=== PATIENT | male | born 1970 | race Hispanic/Latino ===

== ENCOUNTER 2018-04-09 02:28 | Inpatient (IN) | payer OTHER ==
[~2018-04-09] VITALS: Ht 172.7 cm; Wt 146.1 kg
[2018-04-09] VITALS (20 sets, daily range): BP systolic 95–155; BP diastolic 39–90
[~2018-04-09 02:28] MED LIST: GEMFIBROZIL600 MG PO; LEVEMIR100 UNIT/1 SQ; LISINOPRIL40 MG PO; NOVOLOG MI100 UNITS/ SQ; NOVOLOG100 UNITS/ SQ; PRAVASTATIN SOD40 MG PO
[2018-04-09] MEDS ORDERED: VANCOMYCIN 1GM/NS 250 ML 250 ML IV ONE (02:45)
[2018-04-09] MEDS ORDERED: ACETAMINOPHEN 325 MG TAB PO ONE (02:45)
[2018-04-09] MEDS ORDERED: SODIUM CHLORIDE 0.9% 1000ML 1,000 ML IV ONE ×4 (02:45→04:00)
[2018-04-09] MEDS ORDERED: DOXYCYCLINE 100MG/NS 100ML 100 ML IV ONE (02:45)
[2018-04-09 02:57] LABS: BASOPHILS # (AUTO) 0.1 (0.0-0.1); BASOPHILS % 0.3 % (0.0-1.0); EOSINOPHILS # (AUTO) 0.5 (0.0-0.4); HEMATOCRIT 46.8 % (38.2-49.6); HEMOGLOBIN 16.6 g/dL (14.0-18.0); LYMPHOCYTES # (AUTO) 1.5 (1.0-3.2); LYMPHOCYTES % 6.5 % (18.0-39.1); MEAN CORPUSCULAR HEMOGLOBIN 28.8 pg (28-32); MEAN CORPUSCULAR HGB CONC 35.5 g/dL (31-35); MEAN CORPUSCULAR VOLUME 81.3 fL (81-99); MONOCYTES # (AUTO) 0.7 (0.2-0.8); MONOCYTES % 2.9 % (4.4-11.3); NEUTROPHILS # (AUTO) 20.3 (2.1-6.9); NEUTROPHILS % 87.6 % (38.7-80.0); PLATELET COUNT 303 x10e3/uL (140-360); RED BLOOD COUNT 5.76 x10e6/uL (4.3-5.7); RED CELL DISTRIBUTION WIDTH 13.2 % (11.7-14.4)
[2018-04-09 03:13] LABS: ALANINE AMINOTRANSFERASE 53 IU/L (0-55); ALBUMIN 3.9 g/dL (3.5-5.0); ALKALINE PHOSPHATASE 99 IU/L (40-150); BLOOD UREA NITROGEN 22 mg/dL (7-26); BUN/CREATININE RATIO 17 (6-25); CALCIUM 10.1 mg/dL (8.4-10.2); CARBON DIOXIDE 22 mmol/L (22-29); CHLORIDE 100 mmol/L (98-107); CREATININE, SERUM 1.27 mg/dL (0.72-1.25); EST GLOMERULAR FILTRATION RATE > 60 ML/MIN (60-); GLUCOSE 318 mg/dL (74-118)
[2018-04-09] MEDS ORDERED: TRAMADOL HCL 50 MG TAB PO ONE (03:15)
[2018-04-09 03:16] LABS: SODIUM 136 mmol/L (136-145)
[2018-04-09 03:23] LABS: EOSINOPHILS % (MANUAL) 3 % (0-7); LYMPHOCYTES % (MANUAL) 5 % (19-48); MONOCYTES % (MANUAL) 4 % (3.4-9.0); NEUTROPHILS % (MANUAL) 88 % (40-74); PLATELET MORPHOLOGY COMMENT NORMAL; RBC MORPHOLOGY COMMENT NORMAL
[2018-04-09 03:24] LABS: PLATELET ESTIMATE ADEQUATE
[2018-04-09] MEDS ORDERED: SODIUM CHLORIDE 0.9% 1000ML 1,000 ML ONE (03:33)
--- NOTE | 2018-04-09 03:35 | Diagnostic Imaging Report ---
EXAM: CHEST SINGLE (PORTABLE), AP 1 view INDICATION: Fever COMPARISON: None FINDINGS: LINES/TUBES: None LUNGS: Right middle lobe atelectasis. PLEURA: No effusions or pneumothorax. HEART AND MEDIASTINUM: Normal size and contour. BONES AND SOFT TISSUES: No acute findings. IMPRESSION: Right middle lobe atelectasis. This could represent pneumonia in the appropriate clinical setting. Signed by: Dr. Rina Parada M.D. on 04/09/2018 3:32 AM
[2018-04-09] MEDS ORDERED: IBUPROFEN 600 MG TAB PO STA (03:58)
[2018-04-09] MEDS ORDERED: IBUPROFEN 600 MG TAB ONE (04:02)
--- NOTE | 2018-04-09 04:45 | Diagnostic Imaging Report ---
EXAM: CT CHEST WO INDICATION: Bodyaches, fever COMPARISON: CT of the abdomen and pelvis August 11, 2014 TECHNIQUE: Multidetector CT scanning of the chest was performed. Coronal and sagittal multiplanar reformations were obtained. Routine protocol performed. IV Contrast: None CTDIvol has been reviewed. It is below the limits set by the Radiation Protocol Committee (RPC). FINDINGS: LUNGS AND AIRWAYS: The trachea and major bronchi are unremarkable. No consolidations or edema. There is a 1.1 cm nodule in the posterior aspect of the right lower lobe, stable since at least 2013. PLEURA: No effusions or pneumothorax. HEART, MEDIASTINUM, VESSELS: Normal appearance. UPPER ABDOMEN: Diffuse hepatic steatosis. MUSCULOSKELETAL: No acute findings. IMPRESSION: No evidence of pneumonia. Signed by: Dr. Rina Parada M.D. on 04/09/2018 4:41 AM
[2018-04-09] MEDS ORDERED: NOVOLOG MI100 UNIT/1 (04:55)
[2018-04-09] MEDS ORDERED: METFORMIN HCL500 M1 PO (04:55)
[2018-04-09] MEDS ORDERED: FENOFIBRATE160 MG PO (04:55)
[2018-04-09] MEDS ORDERED: LEVEMIR100 UNIT/1 (04:55)
[2018-04-09] MEDS ORDERED: CRESTOR10 MG PO (05:00)
[2018-04-09] MEDS ORDERED: DEXTROSE 50% SYRINGE 50 ML IV PRN (05:00)
[2018-04-09] MEDS ORDERED: ACETAMINOPHEN 650 MG SUPP PR PRN (05:00)
[2018-04-09] MEDS ORDERED: ONDANSETRON HCL INJ 2 MG/ML VIAL IV PRN (05:00)
[2018-04-09] MEDS: SODIUM CHLORIDE 0.9% 1000ML 1,000 ML IV SCH ×3 (05:39→23:45)
[2018-04-09] MEDS ORDERED: VANCOMYCIN 1GM/NS 250 ML 250 ML IV SCH (05:45)
[2018-04-09 06:00] LABS: CLARITY,URINE CLEAR (CLEAR); COLOR,URINE YELLOW (YELLOW)
[2018-04-09 06:01] LABS: BILIRUBIN,URINE NEGATIVE (NEGATIVE); KETONES,URINE NEGATIVE (NEGATIVE); LEUKOCYTE ESTERASE ,URINE NEGATIVE (NEGATIVE); NITRITE,URINE NEGATIVE (NEGATIVE); PROTEIN,URINE DIPSTICK NEGATIVE (NEGATIVE); URINE UROBILINOGEN 0.2 mg/dL (0.2 - 1)
[2018-04-09 06:02] LABS: RBC,URINE 0-5 /HPF (0-5); WBC,URINE (MAN) 0-5 /HPF (0-5)
[2018-04-09 06:03] LABS: EPITHELIAL CELLS,URINE FEW /LPF
[2018-04-09] MEDS ORDERED: SODIUM CHLORIDE 0.9% 1000ML 1,000 ML IV STA (07:18)
[2018-04-09] MEDS: INSULIN REGULAR, HUMAN 100 UNIT/1 ML 3ML VIAL SQ SCH ×4 (07:30→21:08)
[2018-04-09] MEDS ORDERED: DOXYCYCLINE 100MG/NS 100ML 100 ML IV SCH (15:00)
[2018-04-09] MEDS: DOXYCYCLINE 100MG/NS 100ML 100 ML IV SCH (15:29)
[2018-04-09] MEDS: VANCOMYCIN 1GM/NS 250 ML 250 ML IV SCH (16:20)
[2018-04-09] MEDS: METFORMIN HCL 500 MG TAB CR PO SCH (16:32)
[2018-04-09] MEDS: ENOXAPARIN SOD INJ 40 MG/0.4 ML SYR SC SCH (17:14)
[2018-04-09] MEDS: IBUPROFEN 600 MG TAB PO PRN (19:00)
[2018-04-09] MEDS: SIMVASTATIN 40 MG TAB PO SCH (20:57)
[2018-04-09] MEDS: ACETAMINOPHEN 325 MG TAB PO PRN (20:57)
[2018-04-09] MEDS: INSULIN DETEMIR 100 UNIT/ML PEN SQ SCH (21:08)
[2018-04-10] VITALS (28 sets, daily range): BP systolic 106–164; BP diastolic 70–119
[2018-04-10] MEDS: DOXYCYCLINE 100MG/NS 100ML 100 ML IV SCH ×2 (02:30→14:56)
[2018-04-10] MEDS: VANCOMYCIN 1GM/NS 250 ML 250 ML IV SCH ×2 (03:59→16:11)
[2018-04-10] MEDS: ACETAMINOPHEN 325 MG TAB PO PRN ×2 (04:00→12:25)
[2018-04-10 04:39] LABS: BASOPHILS # (AUTO) 0.1 (0.0-0.1); BASOPHILS % 0.2 % (0.0-1.0); EOSINOPHILS # (AUTO) 0.1 (0.0-0.4); EOSINOPHILS % 0.4 % (0.0-6.0); HEMATOCRIT 40.5 % (38.2-49.6); HEMOGLOBIN 13.9 g/dL (14.0-18.0); LYMPHOCYTES # (AUTO) 1.4 (1.0-3.2); LYMPHOCYTES % 6.4 % (18.0-39.1); MEAN CORPUSCULAR HEMOGLOBIN 28.4 pg (28-32); MEAN CORPUSCULAR HGB CONC 34.3 g/dL (31-35); MEAN CORPUSCULAR VOLUME 82.7 fL (81-99); MONOCYTES # (AUTO) 0.9 (0.2-0.8); NEUTROPHILS # (AUTO) 19.8 (2.1-6.9); NEUTROPHILS % 88.3 % (38.7-80.0); PLATELET COUNT 224 x10e3/uL (140-360); RED CELL DISTRIBUTION WIDTH 13.8 % (11.7-14.4)
[2018-04-10 04:57] LABS: ALANINE AMINOTRANSFERASE 47 IU/L (0-55); ALBUMIN 2.9 g/dL (3.5-5.0); ALBUMIN/GLOBULIN RATIO 0.8 (0.8-2.0); ALKALINE PHOSPHATASE 71 IU/L (40-150); ANION GAP 13.1 mmol/L (8-16); BLOOD UREA NITROGEN 16 mg/dL (7-26); BUN/CREATININE RATIO 15 (6-25); CARBON DIOXIDE 24 mmol/L (22-29); CHLORIDE 103 mmol/L (98-107); CREATININE, SERUM 1.06 mg/dL (0.72-1.25); EST GLOMERULAR FILTRATION RATE > 60 ML/MIN (60-); GLUCOSE 232 mg/dL (74-118); POTASSIUM 4.1 mmol/L (3.5-5.1); SODIUM 136 mmol/L (136-145)
[2018-04-10] MEDS: SODIUM CHLORIDE 0.9% 1000ML 1,000 ML IV SCH ×3 (06:24→20:40)
[2018-04-10] MEDS: INSULIN REGULAR, HUMAN 100 UNIT/1 ML 3ML VIAL SQ SCH ×4 (07:30→21:20)
[2018-04-10] MEDS: PANTOPRAZOLE SOD 40 MG TABEC PO SCH (07:43)
[2018-04-10] MEDS: METFORMIN HCL 500 MG TAB CR PO SCH ×2 (07:49→16:29)
[2018-04-10] MEDS: FENOFIBRATE 145 MG TAB PO SCH (07:49)
[2018-04-10] MEDS: LISINOPRIL 20 MG TAB PO SCH (07:49)
[2018-04-10] MEDS: IBUPROFEN 600 MG TAB PO PRN (16:29)
[2018-04-10] MEDS: ENOXAPARIN SOD INJ 40 MG/0.4 ML SYR SC SCH (17:02)
[2018-04-10] MEDS: CEFEPIME HCL 2 GM VIAL IV SCH (20:41)
[2018-04-10] MEDS: VANCOMYCIN HCL 2 GM in SODIUM CHLORIDE 0.9% 500ML 400 ML IV SCH (20:41)
[2018-04-10] MEDS: SIMVASTATIN 40 MG TAB PO SCH (20:50)
[2018-04-10] MEDS: INSULIN DETEMIR 100 UNIT/ML PEN SQ SCH (21:19)
--- NOTE | 2018-04-10 23:38 | History and Physical ---
No dictation, 3 minutes 56 seconds Job#: [id number]
[2018-04-11 00:35] VITALS: BP 158/98
[2018-04-11] MEDS: IBUPROFEN 600 MG TAB PO PRN (02:54)
[2018-04-11 03:13] VITALS: BP 148/83
[2018-04-11] MEDS: SODIUM CHLORIDE 0.9% 1000ML 1,000 ML IV SCH ×3 (04:50→22:16)
[2018-04-11 05:17] LABS: BASOPHILS % 0.3 % (0.0-1.0); EOSINOPHILS # (AUTO) 0.3 (0.0-0.4); EOSINOPHILS % 2.2 % (0.0-6.0); HEMATOCRIT 36.9 % (38.2-49.6); HEMOGLOBIN 12.6 g/dL (14.0-18.0); LYMPHOCYTES # (AUTO) 1.4 (1.0-3.2); LYMPHOCYTES % 9.3 % (18.0-39.1); MEAN CORPUSCULAR HEMOGLOBIN 28.1 pg (28-32); MEAN CORPUSCULAR HGB CONC 34.1 g/dL (31-35); MEAN CORPUSCULAR VOLUME 82.4 fL (81-99); MONOCYTES % 6.5 % (4.4-11.3); NEUTROPHILS # (AUTO) 12.1 (2.1-6.9); NEUTROPHILS % 81.2 % (38.7-80.0); PLATELET COUNT 228 x10e3/uL (140-360); RED BLOOD COUNT 4.48 x10e6/uL (4.3-5.7)
[2018-04-11 05:48] LABS: ANION GAP 13.7 mmol/L (8-16); BLOOD UREA NITROGEN 14 mg/dL (7-26); BUN/CREATININE RATIO 16 (6-25); CALCIUM 9.1 mg/dL (8.4-10.2); CARBON DIOXIDE 21 mmol/L (22-29); CHLORIDE 105 mmol/L (98-107); EST GLOMERULAR FILTRATION RATE > 60 ML/MIN (60-); GLUCOSE 280 mg/dL (74-118); POTASSIUM 3.7 mmol/L (3.5-5.1); SODIUM 136 mmol/L (136-145)
[2018-04-11 07:30] VITALS: BP 148/83
[2018-04-11] MEDS: INSULIN REGULAR, HUMAN 100 UNIT/1 ML 3ML VIAL SQ SCH ×4 (07:30→22:15)
[2018-04-11] MEDS: PANTOPRAZOLE SOD 40 MG TABEC PO SCH (07:40)
[2018-04-11] MEDS: METFORMIN HCL 500 MG TAB CR PO SCH ×2 (08:00→17:45)
[2018-04-11] MEDS: LISINOPRIL 20 MG TAB PO SCH (09:30)
[2018-04-11] MEDS: FENOFIBRATE 145 MG TAB PO SCH (09:30)
[2018-04-11] MEDS: VANCOMYCIN HCL 2 GM in SODIUM CHLORIDE 0.9% 500ML 400 ML IV SCH ×2 (09:30→21:39)
[2018-04-11] MEDS ORDERED: LACTOBACILLUS ACIDOPHILUS CAPSULE ONE (10:05)
[2018-04-11] MEDS: LACTOBACILLUS ACIDOPHILUS CAPSULE PO SCH ×3 (10:06→21:39)
[2018-04-11] MEDS: CEFEPIME HCL 2 GM VIAL IV SCH ×3 (11:30→22:16)
--- NOTE | 2018-04-11 12:42 | Diagnostic Imaging Report ---
PROCEDURE: A single AP view of the chest. COMPARISON: Chest radiograph 04/09/18. INDICATIONS: STATUS POST PICC LINE PLACEMENT FINDINGS: Lines/tubes: Right sided PICC terminating in the expected location of the upper SVC near the brachiocephalic confluence. Radiopaque density overlying the right lung apex, likely overlying the patient. Lungs: Low lung volumes with patchy right basilar opacity. Pleura: There is no pleural effusion or pneumothorax. Heart and mediastinum: The cardiomediastinal silhouette is unchanged. Bones: No acute bony abnormality. IMPRESSION: Right sided PICC terminating in the expected location of the upper SVC near the brachiocephalic confluence. Patchy right basilar opacity, likely atelectasis. Aspiration or pneumonia could have a similar appearance. Dictated by: KASANDRA DUPONT M.D. on 04/11/2018 at 12:47 Electronically approved by: KASANDRA DUPONT M.D. on 04/11/2018 at 12:47
[2018-04-11 13:22] VITALS: BP 139/81
[2018-04-11] MEDS ORDERED: GADOBENATE DIMEGLUMINE 1 ML IV ONE (14:21)
[2018-04-11 15:15] VITALS: BP 141/80
--- NOTE | 2018-04-11 16:40 | Consultation ---
DATE OF CONSULT: April 10, 2018 REASON FOR CONSULTATION: Cellulitis of the leg, not responding to current choice of antibiotic. 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 The patient had surgery done recently. The patient is being admitted with redness and swelling of his left leg. The patient denies any history of trauma, but he is telling me since September, he had several infections, this is his 4th infection in the leg. The patient is telling me that he had leiomyosarcoma. He had surgery, seems like a muscle flap. Since then, he had several infections. The patient has underlying history of obesity, diabetes mellitus, hypertension, hypercholesterolemia, and infection x4 in the last year as mentioned above. ALLERGIES: NKA. FAMILY HISTORY: There is no smoking, drug abuse, alcohol abuse. FAMILY HISTORY: Hypertension. REVIEW OF SYSTEMS HEENT: There is no headache, visual changes, or hearing changes. GI: There is no nausea. No vomiting. No diarrhea. CARDIAC: There is no arrhythmia. NEURO: No seizure activity. SKIN: There is no rashes. PHYSICAL EXAMINATION GENERAL: He is currently alert and oriented, does not seem to be in acute distress. VITAL SIGNS: Stable, currently afebrile. HEENT: Normocephalic, not appear icteric. NECK: Supple. No JVD. No lymphadenopathy. No thyromegaly. CHEST: Clear bilateral. COR: S1 and S2. No murmur. ABDOMEN: Soft. EXTREMITIES: The left leg, there is erythema. There is edema involving the whole leg. There is induration. There is no bullous formation. No black discoloration. LABORATORY DATA: White count 23.1, hemoglobin 16.6. His sodium 136, potassium 3.7, creatinine of 0.94, and glucose of 229. IMPRESSION AND PLAN 1. Cellulitis of the leg in a patient who is morbidly obese, history of surgery before, diabetes mellitus. We will put him on vancomycin 2 g IV piggyback q.12 hours, obtain trough with the 4th dose. Discussed with the nurse. 2. We will also put him on cefepime 2 g q.12 hours. 3. Await blood cultures and urine cultures. Recheck CBC, recheck chem panel. P.r.n. diabetic control. 4. If there is no improvement in the leg, we will probably need to do a MRI of the leg to rule out an abscess especially with patient having surgery. He may need to be IV antibiotics. He will need a PICC line and 2 to 3 weeks of IV antibiotic depending on clinical course because of his weight and underlying medical problems. 1. I am also concerned about lymphedema. Discussed with the patient. He will benefit from mid thigh-high elastic stocking. Job#: [id number] JOSTIN
--- NOTE | 2018-04-11 16:41 | Diagnostic Imaging Report ---
TECHNIQUE: Magnetic resonance imaging of the LEFT tibia and fibula was performed without and with injected contrast. 20 mL of MultiHance. HISTORY: Pain, cellulitis COMPARISON: None available. FINDINGS: Edema and skin thickening throughout the lower extremity. No fluid collections. No abnormal septal enhancement. No signal void within the soft tissues to suggest gas. Bone marrow signal is normal. No edema or finding of osteomyelitis. IMPRESSION: Cellulitis of the left lower extremity. No abscess or osteomyelitis. Signed by: Dr. Slade Sheikh M.D. on 04/11/2018 4:38 PM
[2018-04-11] MEDS: ENOXAPARIN SOD INJ 40 MG/0.4 ML SYR SC SCH (17:45)
[2018-04-11 20:56] VITALS: BP 161/72
[2018-04-11] MEDS: SIMVASTATIN 40 MG TAB PO SCH (21:39)
[2018-04-11] MEDS: ACETAMINOPHEN 325 MG TAB PO PRN (21:39)
[2018-04-11] MEDS: INSULIN DETEMIR 100 UNIT/ML PEN SQ SCH (22:16)
[2018-04-12] VITALS (9 sets, daily range): BP systolic 137–169; BP diastolic 68–94
[2018-04-12] MEDS: SODIUM CHLORIDE 0.9% 1000ML 1,000 ML IV SCH (05:20)
[2018-04-12 05:49] LABS: BASOPHILS % 0.2 % (0.0-1.0); EOSINOPHILS # (AUTO) 0.3 (0.0-0.4); EOSINOPHILS % 1.8 % (0.0-6.0); HEMATOCRIT 36.3 % (38.2-49.6); HEMOGLOBIN 12.3 g/dL (14.0-18.0); LYMPHOCYTES # (AUTO) 1.6 (1.0-3.2); LYMPHOCYTES % 11.1 % (18.0-39.1); MEAN CORPUSCULAR HGB CONC 33.9 g/dL (31-35); MEAN CORPUSCULAR VOLUME 82.5 fL (81-99); MONOCYTES % 6.8 % (4.4-11.3); NEUTROPHILS # (AUTO) 11.6 (2.1-6.9); NEUTROPHILS % 79.3 % (38.7-80.0); PLATELET COUNT 261 x10e3/uL (140-360); RED CELL DISTRIBUTION WIDTH 13.7 % (11.7-14.4)
[2018-04-12 05:57] LABS: ANION GAP 13.5 mmol/L (8-16); BLOOD UREA NITROGEN 13 mg/dL (7-26); BUN/CREATININE RATIO 16 (6-25); CARBON DIOXIDE 22 mmol/L (22-29); CHLORIDE 105 mmol/L (98-107); CREATININE, SERUM 0.79 mg/dL (0.72-1.25); EST GLOMERULAR FILTRATION RATE > 60 ML/MIN (60-); GLUCOSE 219 mg/dL (74-118); POTASSIUM 3.5 mmol/L (3.5-5.1); SODIUM 137 mmol/L (136-145)
[2018-04-12] MEDS: CEFEPIME HCL 2 GM VIAL IV SCH ×3 (06:07→22:10)
[2018-04-12] MEDS: ACETAMINOPHEN 325 MG TAB PO PRN (06:07)
[2018-04-12] MEDS: LACTOBACILLUS ACIDOPHILUS CAPSULE PO SCH ×3 (08:59→21:30)
[2018-04-12] MEDS: FENOFIBRATE 145 MG TAB PO SCH (08:59)
[2018-04-12] MEDS: LISINOPRIL 20 MG TAB PO SCH (08:59)
[2018-04-12] MEDS: PANTOPRAZOLE SOD 40 MG TABEC PO SCH (08:59)
[2018-04-12] MEDS: METFORMIN HCL 500 MG TAB CR PO SCH ×2 (08:59→18:31)
[2018-04-12] MEDS: INSULIN REGULAR, HUMAN 100 UNIT/1 ML 3ML VIAL SQ SCH ×4 (09:00→21:20)
[2018-04-12] MEDS: VANCOMYCIN HCL 2 GM in SODIUM CHLORIDE 0.9% 500ML 400 ML IV SCH (10:00)
[2018-04-12] MEDS ORDERED: VANCOMYCIN HCL 1.5 GM in SODIUM CHLORIDE 0.9% 250ML 300 ML IV SCH (14:00)
[2018-04-12] MEDS: VANCOMYCIN HCL 1.5 GM in SODIUM CHLORIDE 0.9% 250ML 300 ML IV SCH (18:31)
[2018-04-12] MEDS: ENOXAPARIN SOD INJ 40 MG/0.4 ML SYR SC SCH (18:31)
[2018-04-12] MEDS: INSULIN DETEMIR 100 UNIT/ML PEN SQ SCH (21:20)
[2018-04-12] MEDS: SIMVASTATIN 40 MG TAB PO SCH (21:30)
[2018-04-13] VITALS (8 sets, daily range): BP systolic 151–175; BP diastolic 69–90
[2018-04-13] MEDS: VANCOMYCIN HCL 1.5 GM in SODIUM CHLORIDE 0.9% 250ML 300 ML IV SCH ×2 (01:40→10:40)
[2018-04-13 05:02] LABS: BASOPHILS # (AUTO) 0.1 (0.0-0.1); BASOPHILS % 0.5 % (0.0-1.0); EOSINOPHILS # (AUTO) 0.2 (0.0-0.4); EOSINOPHILS % 1.4 % (0.0-6.0); HEMATOCRIT 34.4 % (38.2-49.6); HEMOGLOBIN 11.8 g/dL (14.0-18.0); LYMPHOCYTES # (AUTO) 1.8 (1.0-3.2); LYMPHOCYTES % 12.1 % (18.0-39.1); MEAN CORPUSCULAR HEMOGLOBIN 27.8 pg (28-32); MEAN CORPUSCULAR HGB CONC 34.3 g/dL (31-35); MEAN CORPUSCULAR VOLUME 81.1 fL (81-99); MONOCYTES # (AUTO) 1.3 (0.2-0.8); MONOCYTES % 8.7 % (4.4-11.3); NEUTROPHILS % 76.2 % (38.7-80.0); PLATELET COUNT 267 x10e3/uL (140-360); RED BLOOD COUNT 4.24 x10e6/uL (4.3-5.7); RED CELL DISTRIBUTION WIDTH 13.6 % (11.7-14.4)
[2018-04-13 05:25] LABS: ANION GAP 13.3 mmol/L (8-16); BLOOD UREA NITROGEN 12 mg/dL (7-26); BUN/CREATININE RATIO 15 (6-25); CALCIUM 9.2 mg/dL (8.4-10.2); CARBON DIOXIDE 23 mmol/L (22-29); CHLORIDE 103 mmol/L (98-107); CREATININE, SERUM 0.78 mg/dL (0.72-1.25); EST GLOMERULAR FILTRATION RATE > 60 ML/MIN (60-); GLUCOSE 197 mg/dL (74-118); POTASSIUM 3.3 mmol/L (3.5-5.1); SODIUM 136 mmol/L (136-145)
[2018-04-13] MEDS: CEFEPIME HCL 2 GM VIAL IV SCH ×2 (05:33→14:25)
[2018-04-13] MEDS: ACETAMINOPHEN 325 MG TAB PO PRN (05:38)
[2018-04-13] MEDS: FENOFIBRATE 145 MG TAB PO SCH (08:37)
[2018-04-13] MEDS: METFORMIN HCL 500 MG TAB CR PO SCH ×2 (08:37→17:31)
[2018-04-13] MEDS: LISINOPRIL 20 MG TAB PO SCH (08:37)
[2018-04-13] MEDS: LACTOBACILLUS ACIDOPHILUS CAPSULE PO SCH ×2 (08:37→14:38)
[2018-04-13] MEDS: PANTOPRAZOLE SOD 40 MG TABEC PO SCH (08:37)
[2018-04-13] MEDS: INSULIN REGULAR, HUMAN 100 UNIT/1 ML 3ML VIAL SQ SCH ×3 (08:41→17:23)
[2018-04-13] MEDS ORDERED: POTASSIUM CHLORIDE 20 MEQ TAB CR PO ONE (12:10)
--- NOTE | 2018-04-13 13:41 | Discharge Summary ---
PRIMARY CARE PHYSICIAN: Dr. Cardoza. Discharge the patient home. DISCHARGE DIAGNOSES 1. Left lower extremity cellulitis. 2. Sepsis present on admission. 3. Hypertension. 4. Type 2 diabetes mellitus, uncontrolled, with hemoglobin A1c of 8.5. 5. Obesity. 6. History of chronic left lower extremity edema. HOSPITAL COURSE: Mr. Shaun Campos is a 48-year-old male. He has past medical history of hypertension, type 2 diabetes mellitus, history of some surgery for removal of a tumor in the left leg several years ago. Since then, he has mild swelling in his left lower extremity, which is his baseline, but he started having fevers, worsening redness, swelling in his left lower extremity. Hence, he presented to the emergency room at [facility] for evaluation. He was found to have a white count of 23,000 and a fever of 103 and tachycardia. He had severe sepsis that was present on admission. He also had lactic acidosis. He was admitted to ICU. He was started on IV fluids and IV antibiotics. Infectious disease, Dr. Willoughby, also was consulted. Currently he is on vancomycin and cefepime. His leukocytosis is down to 14,000. He has been afebrile for almost 48 hours now and ID has recommended PICC line placement and IV vancomycin as outpatient. We are waiting on medical case manager to arrange IV antibiotics. Once that is arranged, he will be discharged home. He needs serial monitoring of his creatinine while he is on vancomycin, and ID followup early next week to repeat his blood work, and he needs to follow up with his PCP in 1 week as well. I have seen and examined the patient on the day of this discharge. CONDITION AT TIME OF DISCHARGE: Stable. MEDICATIONS: Per NOV. ACTIVITY: As tolerated. DIET: ADA low-sodium diet. FOLLOWUP: The patient was advised to follow up with his primary care physician and infectious disease in 1 week. TIME SPENT FOR DISCHARGE PROCESS: 35 minutes. LETICIA MEDINA MD Job#: [id number] TA cc:DR. CARDOZA
[2018-04-13] MEDS ORDERED: ALTEPLASE RECOMBINANT 2 MG/2 ML VIAL IV ONE (17:15)
[2018-04-13] MEDS: ENOXAPARIN SOD INJ 40 MG/0.4 ML SYR SC SCH (17:31)
== END 2018-04-13 18:41 | disposition home or self-care (01) | DRG 872 ==
LOC: ER 02:28 → ERHOLD 04:58 → ICU 13:49 → MED/SURG3 04-11 16:06
PROVIDERS: ADMIT Internal Medicine; ATTEND Internal Medicine
PROC: 02HV33Z Insertion of Infusion Device into Superior Vena Cava, Percutaneous Approach (ICD-10-PCS; principal; 2018-04-11)
DX: A41.9 Sepsis, unspecified organism (principal); L03.116 Cellulitis of left lower limb; Z68.42 Body mass index [BMI] 45.0-49.9, adult; E87.2 Acidosis; E11.8 Type 2 diabetes mellitus with unspecified complications; E66.01 Morbid (severe) obesity due to excess calories; R65.20 Severe sepsis without septic shock; I10 Essential (primary) hypertension; E78.5 Hyperlipidemia, unspecified
CPT/HCPCS: 36415; 36569; 71045; 71250; 80048; 80053; 80202; 81001; 82948; 83036; 83605; 85025; 87040; 93005; 93971; 96361; 96372; 99284; J0692; J1650; J2997; J3370; J7030; J7040; J7050

== ENCOUNTER 2019-01-23 04:47 | Inpatient (IN) | payer OTHER ==
[2019-01-23] VITALS: BP 133/62
[~2019-01-23] VITALS: Ht 172.7 cm; Wt 137.4 kg
[~2019-01-23 04:47] MED LIST changes: +CRESTOR10 MG PO; +FENOFIBRATE160 MG PO; +LEVEMIR100 UNIT/1; +METFORMIN HCL500 M1 PO; +NOVOLOG MI100 UNIT/1
[2019-01-23] MEDS ORDERED: IBUPROFEN 600 MG TAB PO STA (04:54)
[2019-01-23] MEDS ORDERED: VANCOMYCIN 1GM/NS 250 ML 250 ML IV SCH (05:00)
[2019-01-23] MEDS ORDERED: SODIUM CHLORIDE 0.9% 1000ML 1,000 ML IV ONE ×3 (05:00→06:00)
[2019-01-23] MEDS ORDERED: VASCEPA PO (05:14)
[2019-01-23] MEDS ORDERED: TRESIBA (05:16)
[2019-01-23 05:35] LABS: BASOPHILS # (AUTO) 0.1 (0.0-0.1); BASOPHILS % 0.2 % (0.0-1.0); EOSINOPHILS # (AUTO) 0.5 (0.0-0.4); EOSINOPHILS % 2.1 % (0.0-6.0); HEMOGLOBIN 16.1 g/dL (14.0-18.0); LYMPHOCYTES # (AUTO) 1.2 (1.0-3.2); LYMPHOCYTES % 4.6 % (18.0-39.1); MEAN CORPUSCULAR HEMOGLOBIN 28.9 pg (28-32); MEAN CORPUSCULAR VOLUME 82.4 fL (81-99); MONOCYTES # (AUTO) 1.3 (0.2-0.8); MONOCYTES % 5.1 % (4.4-11.3); NEUTROPHILS # (AUTO) 22.8 (2.1-6.9); NEUTROPHILS % 87.3 % (38.7-80.0); PLATELET COUNT 305 x10e3/uL (140-360); RED BLOOD COUNT 5.58 x10e6/uL (4.3-5.7); RED CELL DISTRIBUTION WIDTH 13.3 % (11.7-14.4)
[2019-01-23] MEDS: CEFEPIME 2 GM/NS 0.9% 100 ML 100 ML IV SCH ×2 (05:55→17:28)
[2019-01-23 05:59] LABS: ALANINE AMINOTRANSFERASE 49 IU/L (0-55); ALBUMIN 3.9 g/dL (3.5-5.0); ALBUMIN/GLOBULIN RATIO 1.1 (0.8-2.0); ALKALINE PHOSPHATASE 76 IU/L (40-150); ANION GAP 14.2 mmol/L (8-16); BLOOD UREA NITROGEN 26 mg/dL (7-26); BUN/CREATININE RATIO 25 (6-25); CALCIUM 10.2 mg/dL (8.4-10.2); CARBON DIOXIDE 22 mmol/L (22-29); CHLORIDE 105 mmol/L (98-107); CREATININE, SERUM 1.04 mg/dL (0.72-1.25); EST GLOMERULAR FILTRATION RATE > 60 ML/MIN (60-); GLUCOSE 195 mg/dL (74-118); POTASSIUM 4.2 mmol/L (3.5-5.1); SODIUM 137 mmol/L (136-145)
[2019-01-23] MEDS ORDERED: ONDANSETRON HCL INJ 2MG/ML 2ML 2 MG/ML VIAL IV PRN (06:15)
[2019-01-23] MEDS ORDERED: DEXTROSE 50% SYRINGE 50 ML IV PRN (06:15)
[2019-01-23] MEDS ORDERED: MORPHINE SULFATE INJ 4 MG/ML INJ 1ML IV PRN (06:45)
[2019-01-23] MEDS: SODIUM CHLORIDE 0.9% 1000ML 1,000 ML IV SCH ×2 (07:54→16:22)
[2019-01-23] MEDS: INSULIN REGULAR, HUMAN 100 UNIT/1 ML 3ML VIAL SQ SCH ×2 (08:18→11:30)
[2019-01-23] MEDS: LISINOPRIL 20 MG TAB PO SCH (08:19)
[2019-01-23] MEDS: VASCEPA PO SCH ×2 (08:19→17:00)
[2019-01-23] MEDS: FENOFIBRATE 145 MG TAB PO SCH (08:19)
[2019-01-23 09:30] VITALS: BP 107/89
--- NOTE | 2019-01-23 09:30 | NUR ---
Patient arrived from ER via wheelchair with a diagnosis of left lower leg cellulitis, Fever, and Leukocytosis. He is awake, alert, able to make needs known and ambulatory. POC discussed. Vital signs taken and stable at this time. LLE is with redness, warmth to touch and edematous. Per patient swelling is intermittent. Patient instructed to call for assistance as needed and verbalized understanding. Bed in lowest position, locked and call ham within reach.
[2019-01-23 09:45] VITALS: BP 107/89
--- NOTE | 2019-01-23 11:00 | NUR ---
Report given to RN.
[2019-01-23 11:40] VITALS: BP 108/53
[2019-01-23] MEDS: LACTOBACILLUS ACIDOPHILUS CAPSULE PO SCH (16:23)
[2019-01-23] MEDS: INSULIN LISPRO 100 UNIT/1 ML 3ML VIAL SQ SCH ×2 (16:23→21:21)
[2019-01-23 16:27] VITALS: BP 122/61
[2019-01-23] MEDS: ACETAMINOPHEN 325 MG TAB PO PRN ×2 (16:29→20:25)
[2019-01-23] MEDS ORDERED: ENOXAPARIN SOD INJ 40 MG/0.4 ML SYR SC SCH (17:00)
[2019-01-23] MEDS: VANCOMYCIN HCL 2 GM in SODIUM CHLORIDE 0.9% 500ML 500 ML IV SCH (18:43)
[2019-01-23 19:56] VITALS: BP 116/67
[2019-01-23] MEDS: SIMVASTATIN 40 MG TAB PO SCH (21:20)
[2019-01-23] MEDS: INSULIN GLARGINE 100 UNITS/ML VIAL SQ SCH (21:24)
--- NOTE | 2019-01-23 22:04 | Consultation ---
DATE OF CONSULTATION: REASON FOR CONSULTATION: Cellulitis of the leg. Thank you so much for allowing me to see this patient. This is a very pleasant 48-year-old Turkish male, known to me from previous admission back in May when he had the similar problem. HISTORY OF PRESENT ILLNESS: This patient is a very pleasant 48-year-old male with history of diabetes mellitus and history of obesity, who is a industrial relations officer. Back on April 10, he was here with cellulitis of his leg. The patient had leiomyosarcoma of his leg 3 years ago, underwent surgery with resection right above the knee and since then he had 4 infections, the last time back in March after care of him and he was treated with IV antibiotic for a couple of weeks. 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 The patient was treated with vancomycin at that time and with slow improvement and discharged home. He was doing well since then until now. He was instructed to wear an elastic stocking, but he is really not that compliant. He went to see his [place] and told him that something else could be done to help prevent him having infection except wearing the stocking. The patient is coming with redness and pain in his leg. He is also having fever and chills and not feeling well. The patient comes in to the hospital and was admitted. I am asked to see him. PAST MEDICAL HISTORY: Significant for obesity, hypertension, leiomyosarcoma 3 years ago, so far no evidence of recurrence. PAST SURGICAL HISTORY: Resection of leiomyosarcoma. ALLERGIES: PENICILLIN, BUT HE DOES WELL WITH CEPHALOSPORIN. SOCIAL HISTORY: There is no smoking, drug abuse, or alcohol abuse. He is a industrial relations officer. . HOME MEDICATIONS: He is currently on lisinopril, TriCor, insulin, Lovenox, and Zocor. LABORATORY DATA: White count on admission 26, hemoglobin 16.1, hematocrit 46. Sodium 137, potassium 4.1, creatinine 1.04. Lactic acid 25 with liver enzyme within normal limits and his glucose 195. REVIEW OF SYSTEMS: HEENT: There is no headache, visual changes, or hearing changes. GI: There is some nausea. No vomiting. No diarrhea. CARDIAC: There is no arrhythmia. NEURO: There is no seizure activity or focal weakness. SKIN: There is no other rash. JOINT: There is no erythema or edema. All other symptoms within normal limits. PHYSICAL EXAMINATION: GENERAL: He is currently alert, oriented, does not seem to be in acute distress. VITAL SIGNS: Stable, currently afebrile. HEENT: Normocephalic, does not appear icteric. NECK: Supple. No JVD. No lymphadenopathy. No thyromegaly. CHEST: Clear bilateral. HEART: S1 and S2. No S3, S4, or murmur. ABDOMEN: Soft. Bowel sounds present. No tenderness. Obese. EXTREMITIES: Left lower extremity, there is erythema and there is edema. The erythema and edema involving the whole leg from the toes all the way to the knee. His pulses are strong otherwise. IMPRESSION: 1. Sepsis on admission secondary to cellulitis of the leg. 2. Cellulitis of the left leg. His comorbidity factors obesity, diabetes, and history of surgery of leiomyosarcoma with compromised venous return and lymphedema probably. 3. Diabetes. 4. Hypertension. 5. Hypercholesteremia. RECOMMENDATION: Agree with blood cultures. Agree with vancomycin and cefepime. We will await blood cultures. We will dose the vancomycin according to his weight. We will follow the trough. He would need a PICC line. Recheck CBC. Recheck Chem panel. We will follow with you. Thank you for asking me to see this patient. MD MARCELLA Burks/JUANITO /[id number]
--- NOTE | 2019-01-23 22:26 | NUR ---
Transfer patient to Med-surg ([id number]) by wheelchair with stable condition. Addendum: 01/23/19 at 2227 by Dary Willingham RN wrong charting
--- NOTE | 2019-01-23 22:27 | NUR ---
Report given to MAI Patel. Patient transfer to Med-surg ([id number]) by wheelchair with stable condition.
[2019-01-24] VITALS (9 sets, daily range): BP systolic 116–148; BP diastolic 67–81
[2019-01-24] MEDS: CEFEPIME 2 GM/NS 0.9% 100 ML 100 ML IV SCH ×2 (04:09→17:59)
[2019-01-24] MEDS: SODIUM CHLORIDE 0.9% 1000ML 1,000 ML IV SCH (04:53)
[2019-01-24] MEDS: VANCOMYCIN HCL 2 GM in SODIUM CHLORIDE 0.9% 500ML 500 ML IV SCH ×2 (06:17→18:50)
[2019-01-24 06:33] LABS: BASOPHILS % 0.2 % (0.0-1.0); EOSINOPHILS # (AUTO) 0.1 (0.0-0.4); EOSINOPHILS % 0.3 % (0.0-6.0); HEMOGLOBIN 13.6 g/dL (14.0-18.0); LYMPHOCYTES # (AUTO) 1.5 (1.0-3.2); LYMPHOCYTES % 7.4 % (18.0-39.1); MEAN CORPUSCULAR HEMOGLOBIN 28.2 pg (28-32); MEAN CORPUSCULAR HGB CONC 33.2 g/dL (31-35); MEAN CORPUSCULAR VOLUME 84.9 fL (81-99); MONOCYTES # (AUTO) 0.9 (0.2-0.8); MONOCYTES % 4.6 % (4.4-11.3); NEUTROPHILS # (AUTO) 17.2 (2.1-6.9); PLATELET COUNT 249 x10e3/uL (140-360); RED BLOOD COUNT 4.83 x10e6/uL (4.3-5.7); RED CELL DISTRIBUTION WIDTH 13.7 % (11.7-14.4)
[2019-01-24 06:41] LABS: ALANINE AMINOTRANSFERASE 37 IU/L (0-55); ALBUMIN 3.1 g/dL (3.5-5.0); ALBUMIN/GLOBULIN RATIO 0.9 (0.8-2.0); ALKALINE PHOSPHATASE 68 IU/L (40-150); ANION GAP 11.8 mmol/L (8-16); BLOOD UREA NITROGEN 15 mg/dL (7-26); BUN/CREATININE RATIO 17 (6-25); CALCIUM 9.5 mg/dL (8.4-10.2); CARBON DIOXIDE 20 mmol/L (22-29); CHLORIDE 106 mmol/L (98-107); CREATININE, SERUM 0.86 mg/dL (0.72-1.25); EST GLOMERULAR FILTRATION RATE > 60 ML/MIN (60-); GLUCOSE 165 mg/dL (74-118); POTASSIUM 3.8 mmol/L (3.5-5.1); SODIUM 134 mmol/L (136-145)
--- NOTE | 2019-01-24 07:06 | NUR ---
RECEIVED PATIENT RESTING IN BED. NO ACUTE DISTRESS NOTED. DENIES PAIN OR DISCOMFORT. CALL LIGHT WITHIN REACH. BED IN THE LOWEST POSITION.
[2019-01-24] MEDS: ACETAMINOPHEN 325 MG TAB PO PRN ×2 (07:16→21:08)
[2019-01-24] MEDS: INSULIN LISPRO 100 UNIT/1 ML 3ML VIAL SQ SCH ×4 (07:30→21:07)
[2019-01-24] MEDS: VASCEPA PO SCH ×2 (08:08→17:00)
[2019-01-24] MEDS: LISINOPRIL 20 MG TAB PO SCH (08:50)
[2019-01-24] MEDS: FENOFIBRATE 145 MG TAB PO SCH (08:50)
[2019-01-24] MEDS: LACTOBACILLUS ACIDOPHILUS CAPSULE PO SCH ×2 (08:50→17:59)
--- NOTE | 2019-01-24 10:34 | NUR ---
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
--- NOTE | 2019-01-24 15:40 | NUR ---
Visit made by the Spiritual Care Department Pastoral Visitor, Anne-Marie Elena. PV provided pastoral presence, hospitality, and supportive listening. Pastoral Visitor informed pt/family of the scope of [employer] and availability. ALMITA BLANKENSHIP Financial Analysis Advisor Spiritual Care Department O: [phone] Pager: [phone] ([phone] number calling from)
[2019-01-24] MEDS ORDERED: ONDANSETRON HCL 4 MG ORAL DISINTEGRATING TAB PO PRN (16:45)
--- NOTE | 2019-01-24 19:26 | NUR ---
REPORT GIVEN TO ONCOMING NURSE, WALKING ROUNDS DONE. PATIENT IS RESTING IN BED. NO ACUTE DISTRESS NOTED. CALL LIGHT WITHIN REACH. BED IN THE LOWEST POSITION.
--- NOTE | 2019-01-24 19:34 | Diagnostic Imaging Report ---
A single frontal view of the chest. HISTORY: PICC LINE COMPARISON: Chest radiograph April 09, 2018. DISCUSSION: Portable technique, limits sensitivity of the exam. Soft tissue attenuation partially limits sensitivity of the exam. Tubes/Lines: Interval placement of a right upper extremity PICC line, the tip projects in the region of the distal superior vena cava. Lungs and pleura: Low lung volumes result in bibasilar vascular crowding, accentuation of the pulmonary interstitial markings, central pulmonary vasculature, and the cardiac silhouette. Allowing for these limitations, the findings are as follows: No evidence of a consolidative pneumonia or pulmonary alveolar edema. No definite pleural effusion or pneumothorax is identified. Heart and mediastinum: The cardiomediastinal silhouette appears unremarkable. Bones and soft tissues: Appear unremarkable, given this limited exam. IMPRESSION: Status post placement of a right upper extremity PICC line. Signed by: Dr. Mj Lopez D.O., M.M.M. on 01/24/2019 7:31 PM
--- NOTE | 2019-01-24 19:45 | NUR ---
PT IS RESTING IN BED. NO RESPIRATORY DISTRESS NOTED. BED IN THE LOWEST POSITION, LOCKED, AND CALL LIGHT WITHIN REACH. WILL CONTINUE TO MONITOR.
[2019-01-24] MEDS: SIMVASTATIN 40 MG TAB PO SCH (21:06)
[2019-01-24] MEDS: INSULIN GLARGINE 100 UNITS/ML VIAL SQ SCH (21:07)
[2019-01-25] VITALS (8 sets, daily range): BP systolic 122–168; BP diastolic 60–94
[2019-01-25] MEDS: CEFEPIME 2 GM/NS 0.9% 100 ML 100 ML IV SCH ×2 (04:10→16:13)
[2019-01-25] MEDS: VANCOMYCIN HCL 2 GM in SODIUM CHLORIDE 0.9% 500ML 500 ML IV SCH ×2 (05:12→17:19)
[2019-01-25 06:56] LABS: BASOPHILS % 0.2 % (0.0-1.0); EOSINOPHILS # (AUTO) 0.4 (0.0-0.4); EOSINOPHILS % 2.4 % (0.0-6.0); HEMATOCRIT 39.8 % (38.2-49.6); HEMOGLOBIN 13.7 g/dL (14.0-18.0); LYMPHOCYTES # (AUTO) 1.3 (1.0-3.2); LYMPHOCYTES % 7.9 % (18.0-39.1); MEAN CORPUSCULAR HEMOGLOBIN 28.4 pg (28-32); MEAN CORPUSCULAR HGB CONC 34.4 g/dL (31-35); MEAN CORPUSCULAR VOLUME 82.4 fL (81-99); MONOCYTES # (AUTO) 1.1 (0.2-0.8); MONOCYTES % 6.6 % (4.4-11.3); NEUTROPHILS # (AUTO) 13.3 (2.1-6.9); NEUTROPHILS % 82.3 % (38.7-80.0); PLATELET COUNT 242 x10e3/uL (140-360); RED BLOOD COUNT 4.83 x10e6/uL (4.3-5.7); RED CELL DISTRIBUTION WIDTH 13.7 % (11.7-14.4)
[2019-01-25] MEDS: ACETAMINOPHEN 325 MG TAB PO PRN (07:53)
[2019-01-25] MEDS: VASCEPA PO SCH ×2 (07:53→16:13)
[2019-01-25] MEDS: INSULIN LISPRO 100 UNIT/1 ML 3ML VIAL SQ SCH ×4 (07:54→21:22)
[2019-01-25] MEDS: LACTOBACILLUS ACIDOPHILUS CAPSULE PO SCH ×2 (07:54→16:13)
[2019-01-25] MEDS: FENOFIBRATE 145 MG TAB PO SCH (07:54)
[2019-01-25] MEDS: LISINOPRIL 20 MG TAB PO SCH (07:54)
--- NOTE | 2019-01-25 14:09 | NUR ---
RECEIVED PT AAOX3 SITTING IN RECLINER. NO S/S OF DISTRESS NOTED. NO COMPLAINTS AT THIS TIME. INSTRUCTED TO CALL FOR ASSISTANCE. PT VERBALIZED UNDERSTANDING. WILL CONTINUE TO MONITOR.
--- NOTE | 2019-01-25 19:10 | NUR ---
Completed bedside rounds with morning nurse. Pt alert and orient to name. Sitting up on couch watching TV. Denies pain at this time. Call ham within reach. Will continue to monitor.
[2019-01-25] MEDS ORDERED: INSULIN GLARGINE 100 UNITS/ML VIAL SQ SCH (21:00)
[2019-01-25] MEDS: SIMVASTATIN 40 MG TAB PO SCH (21:21)
[2019-01-26] VITALS (7 sets, daily range): BP systolic 133–166; BP diastolic 70–91
[2019-01-26] MEDS: CEFEPIME 2 GM/NS 0.9% 100 ML 100 ML IV SCH ×2 (05:00→17:17)
[2019-01-26] MEDS: VANCOMYCIN HCL 2 GM in SODIUM CHLORIDE 0.9% 500ML 500 ML IV SCH ×2 (06:00→17:17)
[2019-01-26 06:36] LABS: BASOPHILS # (AUTO) 0.1 (0.0-0.1); BASOPHILS % 0.4 % (0.0-1.0); EOSINOPHILS # (AUTO) 0.5 (0.0-0.4); EOSINOPHILS % 4.1 % (0.0-6.0); HEMATOCRIT 38.5 % (38.2-49.6); LYMPHOCYTES # (AUTO) 1.8 (1.0-3.2); LYMPHOCYTES % 14.8 % (18.0-39.1); MEAN CORPUSCULAR HEMOGLOBIN 28.1 pg (28-32); MEAN CORPUSCULAR HGB CONC 33.8 g/dL (31-35); MEAN CORPUSCULAR VOLUME 83.2 fL (81-99); NEUTROPHILS # (AUTO) 8.6 (2.1-6.9); NEUTROPHILS % 72.2 % (38.7-80.0); PLATELET COUNT 268 x10e3/uL (140-360); RED BLOOD COUNT 4.63 x10e6/uL (4.3-5.7); RED CELL DISTRIBUTION WIDTH 13.5 % (11.7-14.4)
--- NOTE | 2019-01-26 06:57 | NUR ---
Pt sitting on couch watching TV. Denies pain at this time. No distress noted.
--- NOTE | 2019-01-26 07:09 | NUR ---
pt alert resp even and unlabored at this time no distress noted pot able to make needs known no c/o pain when asked, call light in reach.
[2019-01-26] MEDS: LACTOBACILLUS ACIDOPHILUS CAPSULE PO SCH ×2 (08:22→17:17)
[2019-01-26] MEDS: LISINOPRIL 20 MG TAB PO SCH (08:22)
[2019-01-26] MEDS: FENOFIBRATE 145 MG TAB PO SCH (08:22)
[2019-01-26] MEDS: VASCEPA PO SCH ×2 (08:23→17:00)
[2019-01-26] MEDS: ACETAMINOPHEN 325 MG TAB PO PRN (08:38)
[2019-01-26] MEDS: INSULIN LISPRO 100 UNIT/1 ML 3ML VIAL SQ SCH ×3 (08:41→17:19)
--- NOTE | 2019-01-26 14:36 | NUR ---
ORDERS FOR HOME IV ABX VANCOMYCIN 2 GM IV Q 12 HRS X 10 MORE DAYS CBC AND CHEM PANEL Q WEDNESDAY AND FAX RESULTS TO DR CONROY CHOICE LETTER SIGNED FOR [facility] AND [facility] PH [phone]; FAX: [phone] COPY OF CHOICE LETTER GIVEN TO PT SPOKE WITH ZACK BENJAMIN WITH [facility] AND CONFIRMED THAT THEY ARE IN NETWORK WITH PT'S INSURANCE FAXED ORDERS; CONFIRMATION REC'D PLAN DC HOME TODAY AFTER 4PM VANCOMYCIN COPY OF NAME AND NUMBER OF HOME HEALTH GIVEN TO PT
--- NOTE | 2019-01-26 14:41 | NUR ---
HOME IV ANTIBIOTICS FOLLOWS: VANCOMYCIN 2GMS IV Q 12 HRS X 10 MORE DAYS (LAST DAY 02/05) CBC AND CHEM PANEL EVERY WEDNESDAY AND FAX RESULTS TO DR [facility] PH: [phone] FAX: [phone] CONTACT: ZACK BENJAMIN CELL: [phone] [facility] MACHINE OPERATOR: ASA JOSÉ R.N., C.M. [phone]
--- NOTE | 2019-01-26 16:10 | Discharge Summary ---
PRIMARY CARE DOCTOR: Dr. Flavio Cardoza. FINAL DIAGNOSIS: Sepsis present on admission secondary to left leg cellulitis. SECONDARY DIAGNOSES: 1. Morbid obesity. 2. Uncontrolled diabetes. 3. Hypertension. 4. Previous leiomyosarcoma of left flank status post surgery two years ago. CONSULTANTS: Dr. Willoughby, Infectious Disease. PROCEDURES/STUDIES PERFORMED: PICC line placement. HISTORY: Per H and P. HOSPITAL COURSE: The patient was admitted. This is the same presentation as last year. Initially, the patient responded very quick to IV cefepime and IV vancomycin. However, on the day of admission, the patient is much better. His white count is all the way down to 11. T-max is only 100.1. At this time, the patient really wants to go home because his son is in another hospital. I have discussed this case with Dr. Willoughby. We will arrange for him to go home on IV vancomycin for another 10 days to complete a two-week course. The patient was seen and examined today. I took 32 minutes total to discharge this patient. CONDITION ON DISCHARGE: Improved. DISCHARGE MEDICATIONS: Please see medication reconciliation form. FOLLOWUP: The patient will follow up with Dr. Willoughby in 1-2 weeks and will follow up with his primary care doctor in 2-3 weeks. MD ROBERT Ca/JUANITO /[id number] cc: Flavio Cardoza
--- NOTE | 2019-01-26 19:23 | NUR ---
report given to oncoming nurse, for continued care
--- NOTE | 2019-01-26 19:23 | NUR ---
report given to oncoming nurse, for continued care
[2019-01-26] MEDS ORDERED: CEFEPIME 2 GM/NS 0.9% 100 ML 100 ML IV SCH (19:45)
--- NOTE | 2019-01-26 20:15 | NUR ---
Pt D/C'd via W/C to private vehicle. A&Ox4. VSS. Denies pain at this time. PICC right upper arm double lumen, patent and intact. Written/Verbal instructions given. Pt verbalized understanding.
--- NOTE | 2019-01-27 10:01 | Diagnostic Imaging Report ---
PROCEDURE:EXTREMITY ULTRASOUND COMPARISON:None. INDICATIONS:Swelling TECHNIQUE:Ultrasound evaluation was performed in the area of interest involving the left calf. There is diffuse edema present. No abscess or defined fluid collection is identified. CONCLUSION: Diffuse edema without drainable abscess. Josh Henao D.O. Dictated by: Josh Henao D.O. on 01/27/2019 at 9:53 Electronically approved by: Josh Henao D.O. on 01/27/2019 at 9:53
== END 2019-01-26 20:15 | disposition home health service (06) | DRG 872 ==
LOC: ER 04:47 → ERHOLD 06:18 → IMCU 09:37 → MED/SURG3 22:18
PROVIDERS: ADMIT Internal Medicine; ATTEND Internal Medicine
PROC: 02HV33Z Insertion of Infusion Device into Superior Vena Cava, Percutaneous Approach (ICD-10-PCS; principal; 2019-01-24)
DX: A41.9 Sepsis, unspecified organism (principal); L03.116 Cellulitis of left lower limb; Z68.42 Body mass index [BMI] 45.0-49.9, adult; E66.01 Morbid (severe) obesity due to excess calories; E11.65 Type 2 diabetes mellitus with hyperglycemia; I10 Essential (primary) hypertension; E78.5 Hyperlipidemia, unspecified; I89.0 Lymphedema, not elsewhere classified; R53.81 Other malaise; Z79.4 Long term (current) use of insulin; Z88.0 Allergy status to penicillin
CPT/HCPCS: 36415; 36569; 71045; 76882; 80053; 80202; 82948; 83605; 85025; 87040; 99284; J1650; J1815; J3370; J7030; J7040

== ENCOUNTER 2019-02-28 10:21 | Inpatient (IN) | payer OTHER ==
[~2019-02-28] VITALS: Ht 170.2 cm; Wt 140.6 kg
[~2019-02-28 10:21] MED LIST changes: -NOVOLOG MI100 UNIT/1; +NOVOLOG MI100 UNIT/1 SQ; +TRESIBA SQ; +VASCEPA PO
--- NOTE | 2019-02-28 10:57 | Diagnostic Imaging Report ---
EXAMINATION: PA and lateral views of the chest. COMPARISON: 01/24/2019 CLINICAL HISTORY: Cellulitis left lower leg DISCUSSION: The lungs are well-inflated and without consolidation, pleural effusion, or pneumothorax. Cardiomediastinal contour is unchanged with tortuosity of the thoracic aorta. No overt pulmonary edema. No acute osseous abnormality. Mild degenerative disc changes of the thoracic spine. IMPRESSION: No acute cardiopulmonary abnormalities. Signed by: Dr. Gary Escobedo M.D. on 02/28/2019 10:53 AM
[2019-02-28] MEDS ORDERED: SODIUM CHLORIDE 0.9% 1000ML 1,000 ML IV STA ×2 (11:14→16:08)
[2019-02-28] MEDS ORDERED: IBUPROFEN 600 MG TAB PO STA (11:15)
[2019-02-28] MEDS ORDERED: HYDROCODONE/APAP 10MG-325MG TAB PO ONE (11:15)
[2019-02-28] MEDS ORDERED: ACETAMINOPHEN 325 MG TAB PO ONE (11:15)
--- NOTE | 2019-02-28 11:21 | NUR ---
Dr Willoughby at pt bedside
--- NOTE | 2019-02-28 11:28 | NUR ---
his patient is a very pleasant 48-year-old male with history of diabetes mellitus and history of obesity, who is a police radio dispatcher. Back on April 10, he was here with cellulitis of his leg. The patient had leiomyosarcoma of his leg 3 years ago, underwent surgery with resection right above the knee and since then he had 4 infections, the last time back in March after care of him and he was treated with IV antibiotic for a couple of weeks. The patient has comorbidities of obesity and compromised venous return, probably. The patient was treated with vancomycin at that time and with slow improvement and discharged home. He was doing well since then until now. He was instructed to wear an elastic stocking, but he is really not that compliant. He went to see his surgeon [place] and told him that something else could be done to help prevent him having infection except wearing the stocking. The patient is coming with redness and pain in his legs . He is also having fever and chills and not feeling well. The patient comes in to the hospital and was admitted. I am asked to see him. PAST MEDICAL HISTORY: Significant for obesity, hypertension, leiomyosarcoma 3 years ago, so far no evidence of recurrence. PAST SURGICAL HISTORY: Resection of leiomyosarcoma. ALLERGIES: PENICILLIN, BUT HE DOES WELL WITH CEPHALOSPORIN. SOCIAL HISTORY: There is no smoking, drug abuse, or alcohol abuse. He is a police radio dispatcher. . HOME MEDICATIONS: He is currently on lisinopril, TriCor, insulin, Lovenox, and Zocor. [id number]
[2019-02-28 11:34] LABS: BILIRUBIN,URINE NEGATIVE (NEGATIVE); CLARITY,URINE CLEAR (CLEAR); COLOR,URINE YELLOW (YELLOW); KETONES,URINE NEGATIVE (NEGATIVE); LEUKOCYTE ESTERASE ,URINE NEGATIVE (NEGATIVE); NITRITE,URINE NEGATIVE (NEGATIVE); PROTEIN,URINE DIPSTICK NEGATIVE (NEGATIVE); URINE UROBILINOGEN 0.2 mg/dL (0.2 - 1)
[2019-02-28] MEDS: VANCOMYCIN 1GM/NS 250 ML 250 ML IV SCH ×2 (11:49→23:27)
[2019-02-28 11:55] LABS: ALANINE AMINOTRANSFERASE 55 IU/L (0-55); ALBUMIN/GLOBULIN RATIO 1.1 (0.8-2.0); ALKALINE PHOSPHATASE 87 IU/L (40-150); ANION GAP 16.2 mmol/L (8-16); BLOOD UREA NITROGEN 20 mg/dL (7-26); BUN/CREATININE RATIO 20 (6-25); CARBON DIOXIDE 24 mmol/L (22-29); CHLORIDE 100 mmol/L (98-107); CREATININE, SERUM 1.02 mg/dL (0.72-1.25); EST GLOMERULAR FILTRATION RATE > 60 ML/MIN (60-); GLUCOSE 189 mg/dL (74-118); POTASSIUM 4.2 mmol/L (3.5-5.1); SODIUM 136 mmol/L (136-145)
[2019-02-28] MEDS ORDERED: MORPHINE SULFATE 2 MG/ML SYR 1ML IV PRN (12:15)
[2019-02-28] MEDS ORDERED: ONDANSETRON HCL INJ 2MG/ML 2ML 2 MG/ML VIAL IV PRN (12:15)
[2019-02-28] MEDS ORDERED: DEXTROSE 50% SYRINGE 50 ML IV PRN (12:15)
[2019-02-28] MEDS: SODIUM CHLORIDE 0.9% 1000ML 1,000 ML IV SCH ×2 (12:24→20:24)
--- NOTE | 2019-02-28 12:31 | Consultation ---
DATE OF CONSULTATION: 02/28/2019 REASON FOR CONSULTATION: Recommendations on antibiotic. HISTORY OF PRESENT ILLNESS: This patient was seen and examined, chart reviewed. He is well known to me. He is a very pleasant 48-year-old [place] male with history of obesity, history of surgery on his left leg for sarcoma, who had been followed [place] He was here recently with cellulitis. He was discharged home to finish 14 days of intravenous antibiotic, the line was removed on , he was doing well for a week or so, started to have fever, chills, came to the emergency room. He is complaining of fever and chills and shortness of breath. There is no pain in the leg per se, but has pain in both legs. In the emergency room, he had a temperature of 103. The patient was seen and examined, discussed with the ER physician. Discussed with the patient and nursing team. The patient has no other complaints at the present time. PAST MEDICAL HISTORY: He has history of obesity, history of previous cellulitis before. I have seen him before for infection. He does have history of leiomyosarcoma affecting his left leg. PAST SURGICAL HISTORY: Leiomyosarcoma as above. SOCIAL HISTORY: There is no smoking, drug abuse, or alcohol abuse. FAMILY HISTORY: Otherwise noncontributory. REVIEW OF SYSTEMS: HEENT: Negative. PULMONARY: Negative. CARDIAC: Negative. : Negative. SKIN: There is no other rash. Except for the shortness of breath and a fever he denies any. This patient is at risk for recurrent infection because of the compromised anatomy as well as obesity and lymphedema in bilateral lower extremities. LABORATORY DATA: Still pending. PHYSICAL EXAMINATION: GENERAL: He is currently alert, oriented, does not seem to be in acute distress. VITALS SIGNS: Stable. Currently afebrile, 103 earlier. HEENT: Normocephalic. He does not appear icteric. NECK: Supple. CHEST: Clear bilateral. HEART: S1, S2. No S3, S4, or murmur. ABDOMEN: Soft. Bowel sounds present. No tenderness. No hepatosplenomegaly. Obese. SKIN: There is no rash. Both legs, there is edema, but there is no xuan erythema usually in the left leg. IMPRESSION AND PLAN: Fever, chills, shortness of breath. Concerned about pneumonia maybe healthcare-associated pneumonia versus other early sepsis. I would recommend to put him on vancomycin and cefepime. Adjust vancomycin to his weight. We will check CBC, we will check chemistry panel. We will obtain blood cultures, sputum cultures. We will follow up with the chest x-ray. Further recommendations to follow. MD MARCELLA Burks/JUANITO /[id number]
[2019-02-28 12:34] LABS: BASOPHILS # (AUTO) 0.1 (0.0-0.1); BASOPHILS % 0.4 % (0.0-1.0); EOSINOPHILS # (AUTO) 0.4 (0.0-0.4); EOSINOPHILS % 1.4 % (0.0-6.0); HEMATOCRIT 46.6 % (38.2-49.6); HEMOGLOBIN 15.6 g/dL (14.0-18.0); LYMPHOCYTES # (AUTO) 0.9 (1.0-3.2); LYMPHOCYTES % 3.5 % (18.0-39.1); MEAN CORPUSCULAR HEMOGLOBIN 28.2 pg (28-32); MEAN CORPUSCULAR HGB CONC 33.5 g/dL (31-35); MEAN CORPUSCULAR VOLUME 84.3 fL (81-99); MONOCYTES # (AUTO) 1.3 (0.2-0.8); MONOCYTES % 5.1 % (4.4-11.3); NEUTROPHILS # (AUTO) 22.8 (2.1-6.9); NEUTROPHILS % 88.9 % (38.7-80.0); PLATELET COUNT 334 x10e3/uL (140-360); RED BLOOD COUNT 5.53 x10e6/uL (4.3-5.7); RED CELL DISTRIBUTION WIDTH 13.6 % (11.7-14.4)
[2019-02-28 12:35] LABS: BACTERIA,URINE RARE /HPF; EPITHELIAL CELLS,URINE RARE /LPF; RBC,URINE 0-5 /HPF (0-5); WBC,URINE (MAN) 0-5 /HPF (0-5)
[2019-02-28] MEDS ORDERED: MORPHINE SULFATE INJ 4 MG/ML INJ 1ML IV PRN (12:45)
[2019-02-28] MEDS: CEFEPIME 1GM/NS 0.9% 50 ML 50 ML IV SCH ×2 (14:02→22:43)
[2019-02-28] MEDS: INSULIN REGULAR, HUMAN 100 UNIT/1 ML 3ML VIAL SQ SCH ×2 (14:12→20:39)
[2019-02-28 15:06] LABS: EOSINOPHILS % (MANUAL) 1 % (0-7); LYMPHOCYTES % (MANUAL) 4 % (19-48); MONOCYTES % (MANUAL) 4 % (3.4-9.0); NEUTROPHILS % (MANUAL) 91 % (40-74); PLATELET ESTIMATE ADEQUATE; PLATELET MORPHOLOGY COMMENT NORMAL; RBC MORPHOLOGY COMMENT NORMAL
--- NOTE | 2019-02-28 15:45 | NUR ---
Pt noted to have a BP of 89/50 HR 112. Notified Primary RN and Dr. Bob Beyer. Stated to bolus fluids. Repeat lactic obtained.
--- NOTE | 2019-02-28 16:03 | NUR ---
NS running @100cc/hr opened and given as a bolus.
[2019-02-28] MEDS ORDERED: LABETALOL HCL 5 MG/ML 20ML VIAL IV PRN (18:45)
[2019-02-28 20:05] VITALS: BP 122/56
[2019-02-28 20:29] VITALS: BP 112/56
--- NOTE | 2019-02-28 20:48 | NUR ---
PATIENTS FEVER RETURNED, SPOKE TO NICOL[employer]A [employer] O[employer] FOR DR EDWARDS, RECIEVED ORDERS FOR APAP AND LACTIC ACID IN THE MORNING
[2019-02-28] MEDS: ACETAMINOPHEN 325 MG TAB PO PRN (20:57)
[2019-02-28 20:59] VITALS: BP 122/56
[2019-02-28 22:06] VITALS: BP 104/64
[2019-02-28] MEDS: ENOXAPARIN SOD INJ 40 MG/0.4 ML SYR SC SCH (23:05)
[2019-03-01] VITALS (14 sets, daily range): BP systolic 104–150; BP diastolic 60–90
--- NOTE | 2019-03-01 01:32 | Diagnostic Imaging Report ---
EXAMINATION: CHEST XRAY LINE PLACEMENT INDICATION: ^PICC LINE PLACEMENT COMPARISON: Same day [id number] hours FINDINGS: AP view TUBES and LINES: Left PICC in place with tip overlying superior SVC or brachiocephalic/SVC junction. Multiple external leads overlie the right lung. LUNGS: Limited by body habitus. Lungs are well inflated. Central vascular congestion. PLEURA: No significant pleural effusion or pneumothorax. HEART AND MEDIASTINUM: The cardiomediastinal silhouette is prominent on this AP view. BONES AND SOFT TISSUES: No acute osseous lesion. Soft tissues are unremarkable. UPPER ABDOMEN: No free air under the diaphragm. IMPRESSION: Limited by body habitus. Left PICC in place with tip overlying superior SVC or SVC/brachiocephalic junction. No visible pneumothorax. Signed by: Dr. Navin Davis MD on 03/01/2019 1:28 AM
[2019-03-01] MEDS: ACETAMINOPHEN 325 MG TAB PO PRN (03:14)
[2019-03-01 05:41] LABS: BASOPHILS % 0.2 % (0.0-1.0); EOSINOPHILS # (AUTO) 0.6 (0.0-0.4); EOSINOPHILS % 2.9 % (0.0-6.0); HEMOGLOBIN 12.9 g/dL (14.0-18.0); LYMPHOCYTES # (AUTO) 0.8 (1.0-3.2); MEAN CORPUSCULAR HEMOGLOBIN 28.5 pg (28-32); MEAN CORPUSCULAR HGB CONC 33.9 g/dL (31-35); MEAN CORPUSCULAR VOLUME 83.9 fL (81-99); MONOCYTES # (AUTO) 0.9 (0.2-0.8); MONOCYTES % 4.1 % (4.4-11.3); NEUTROPHILS # (AUTO) 18.4 (2.1-6.9); NEUTROPHILS % 88.3 % (38.7-80.0); PLATELET COUNT 211 x10e3/uL (140-360); RED BLOOD COUNT 4.53 x10e6/uL (4.3-5.7); RED CELL DISTRIBUTION WIDTH 14.1 % (11.7-14.4)
[2019-03-01 05:55] LABS: ANION GAP 12.8 mmol/L (8-16); BLOOD UREA NITROGEN 19 mg/dL (7-26); BUN/CREATININE RATIO 23 (6-25); CALCIUM 8.9 mg/dL (8.4-10.2); CARBON DIOXIDE 22 mmol/L (22-29); CHLORIDE 105 mmol/L (98-107); CREATININE, SERUM 0.83 mg/dL (0.72-1.25); EST GLOMERULAR FILTRATION RATE > 60 ML/MIN (60-); GLUCOSE 179 mg/dL (74-118); POTASSIUM 3.8 mmol/L (3.5-5.1); SODIUM 136 mmol/L (136-145)
[2019-03-01 05:58] LABS: CHOL/HDL RATIO 5.1 (3.9-4.7); CHOLESTEROL 172 MD/DL (0-199); HDL CHOLESTEROL 34 MG/DL (40-60); MAGNESIUM 1.3 MG/DL (1.3-2.1); PHOSPHORUS 2.9 MG/DL (2.3-4.7); TRIGLYCERIDES 431 MG/DL (0-149)
[2019-03-01 06:17] LABS: THYROID STIMULATING HORMONE 0.954 uIU/mL (0.350-4.940)
--- NOTE | 2019-03-01 07:06 | NUR ---
report given to tam hudson
[2019-03-01] MEDS: FAMOTIDINE 20 MG TAB PO SCH ×2 (07:30→16:58)
[2019-03-01] MEDS: VASCEPA 2 GM PO SCH ×2 (07:54→16:16)
[2019-03-01] MEDS: INSULIN REGULAR, HUMAN 100 UNIT/1 ML 3ML VIAL SQ SCH ×4 (07:55→20:35)
[2019-03-01] MEDS: SODIUM CHLORIDE 0.9% 1000ML 1,000 ML IV SCH ×3 (08:49→22:44)
[2019-03-01] MEDS: METFORMIN HCL 500 MG TAB CR PO SCH ×2 (08:49→16:58)
[2019-03-01] MEDS: FENOFIBRATE 145 MG TAB PO SCH (08:49)
[2019-03-01] MEDS: LISINOPRIL 20 MG TAB PO SCH (08:49)
[2019-03-01] MEDS: CEFEPIME 1GM/NS 0.9% 50 ML 50 ML IV SCH ×2 (10:31→22:44)
[2019-03-01] MEDS: VANCOMYCIN 1GM/NS 250 ML 250 ML IV SCH ×2 (11:35→23:25)
--- NOTE | 2019-03-01 12:47 | NUR ---
PT DISCUSSED IN BARRIER ROUNDS, PT ON IV ABX, WAITING ON MD TO SEE IF CAN GET DOWNGRADE ORDER.
[2019-03-01] MEDS: ENOXAPARIN SOD INJ 40 MG/0.4 ML SYR SC SCH (16:58)
--- NOTE | 2019-03-01 19:24 | NUR ---
REPORT RECEIVED FROM AM NURSE. PATIENT SITTING ON EDGE OF THE BED WITH ALERT/ORIENTEDX3. AT THE BEDSIDE. DENIED PAIN AND NO SOB. NO RESPIRATORY DISTRESS NOTED.BED IN LOWER POSITION,LOCKED. CALL TORRES WITHIN REACH. PATIENT INSTRUCTED CALL FOR HELP NEEDED,VERBALIZED AND UNDERSTAND. WILL CONTINUE TO MONITOR.
[2019-03-01] MEDS: SIMVASTATIN 40 MG TAB PO SCH (20:34)
[2019-03-01] MEDS ORDERED: INSULIN GLARGINE 100 UNITS/ML VIAL SQ SCH (21:00)
[2019-03-01] MEDS ORDERED: MAGNESIUM SULFATE 2GM/50ML 50 ML IV ONE (22:15)
[2019-03-02] MEDS: CEFEPIME 1GM/NS 0.9% 50 ML 50 ML IV SCH ×2 (00:25→10:54)
[2019-03-02 04:31] VITALS: BP 126/67
[2019-03-02 05:32] LABS: BASOPHILS # (AUTO) 0.1 (0.0-0.1); BASOPHILS % 0.5 % (0.0-1.0); EOSINOPHILS # (AUTO) 1.2 (0.0-0.4); EOSINOPHILS % 11.6 % (0.0-6.0); HEMATOCRIT 38.1 % (38.2-49.6); HEMOGLOBIN 12.8 g/dL (14.0-18.0); LYMPHOCYTES # (AUTO) 1.6 (1.0-3.2); LYMPHOCYTES % 15.4 % (18.0-39.1); MEAN CORPUSCULAR HEMOGLOBIN 27.8 pg (28-32); MEAN CORPUSCULAR HGB CONC 33.6 g/dL (31-35); MEAN CORPUSCULAR VOLUME 82.8 fL (81-99); MONOCYTES # (AUTO) 0.8 (0.2-0.8); MONOCYTES % 7.3 % (4.4-11.3); NEUTROPHILS # (AUTO) 6.6 (2.1-6.9); NEUTROPHILS % 64.7 % (38.7-80.0); PLATELET COUNT 224 x10e3/uL (140-360); RED CELL DISTRIBUTION WIDTH 13.8 % (11.7-14.4)
[2019-03-02 05:41] LABS: ANION GAP 13.8 mmol/L (8-16); BLOOD UREA NITROGEN 13 mg/dL (7-26); BUN/CREATININE RATIO 16 (6-25); CALCIUM 8.9 mg/dL (8.4-10.2); CARBON DIOXIDE 22 mmol/L (22-29); CHLORIDE 103 mmol/L (98-107); CREATININE, SERUM 0.79 mg/dL (0.72-1.25); EST GLOMERULAR FILTRATION RATE > 60 ML/MIN (60-); GLUCOSE 227 mg/dL (74-118); MAGNESIUM 2.1 MG/DL (1.3-2.1); POTASSIUM 3.8 mmol/L (3.5-5.1); SODIUM 135 mmol/L (136-145)
--- NOTE | 2019-03-02 07:02 | NUR ---
Report given to oncoming nurse Trice, walking round done
[2019-03-02 07:30] VITALS: BP 153/90
[2019-03-02] MEDS: INSULIN REGULAR, HUMAN 100 UNIT/1 ML 3ML VIAL SQ SCH ×4 (07:45→22:08)
[2019-03-02] MEDS: METFORMIN HCL 500 MG TAB CR PO SCH ×2 (07:47→16:59)
[2019-03-02] MEDS: FAMOTIDINE 20 MG TAB PO SCH ×2 (07:47→16:59)
[2019-03-02] MEDS: FENOFIBRATE 145 MG TAB PO SCH (07:47)
[2019-03-02] MEDS: LISINOPRIL 20 MG TAB PO SCH (07:48)
[2019-03-02] MEDS: VASCEPA 2 GM PO SCH ×2 (07:48→16:58)
--- NOTE | 2019-03-02 08:30 | NUR ---
RECEIVED REPORT FROM ZAYRA IN IMCU
--- NOTE | 2019-03-02 08:34 | NUR ---
Report called to Melanie, patient transferred to room 290, all belongings sent with patient
--- NOTE | 2019-03-02 08:40 | NUR ---
RECEIVED PT FROM [facility], PT CAME VIA WHEELCHAIR. NO S/S OF DISTRESS
[2019-03-02] MEDS ORDERED: SODIUM CHLORIDE 0.9% 250ML 250 ML ONE (10:39)
[2019-03-02] MEDS: VANCOMYCIN 1GM/NS 250 ML 250 ML IV SCH (11:33)
[2019-03-02 15:36] VITALS: BP 149/81
[2019-03-02] MEDS ORDERED: VANCOMYCIN HCL 1.5 GM in SODIUM CHLORIDE 0.9% 250ML 300 ML IV SCH (17:00)
[2019-03-02] MEDS: ENOXAPARIN SOD INJ 40 MG/0.4 ML SYR SC SCH (17:02)
[2019-03-02] MEDS ORDERED: INSULIN GLARGINE 100 UNITS/ML VIAL SQ SCH (21:00)
[2019-03-02 21:56] VITALS: BP 163/78
[2019-03-02] MEDS: SIMVASTATIN 40 MG TAB PO SCH (22:08)
[2019-03-02] MEDS: VANCOMYCIN HCL 1.5 GM in SODIUM CHLORIDE 0.9% 250ML 300 ML IV SCH (22:08)
[2019-03-03] VITALS: BP 159/79
[2019-03-03 04:00] VITALS: BP 140/80
[2019-03-03 04:02] LABS: BASOPHILS % 0.4 % (0.0-1.0); EOSINOPHILS % 11.7 % (0.0-6.0); HEMATOCRIT 37.8 % (38.2-49.6); HEMOGLOBIN 13.2 g/dL (14.0-18.0); LYMPHOCYTES # (AUTO) 1.9 (1.0-3.2); LYMPHOCYTES % 22.9 % (18.0-39.1); MEAN CORPUSCULAR HEMOGLOBIN 28.6 pg (28-32); MEAN CORPUSCULAR HGB CONC 34.9 g/dL (31-35); MONOCYTES # (AUTO) 0.6 (0.2-0.8); MONOCYTES % 7.5 % (4.4-11.3); NEUTROPHILS # (AUTO) 4.7 (2.1-6.9); PLATELET COUNT 257 x10e3/uL (140-360); RED BLOOD COUNT 4.61 x10e6/uL (4.3-5.7); RED CELL DISTRIBUTION WIDTH 13.5 % (11.7-14.4)
[2019-03-03 04:21] LABS: ANION GAP 16.5 mmol/L (8-16); BLOOD UREA NITROGEN 13 mg/dL (7-26); BUN/CREATININE RATIO 17 (6-25); CALCIUM 9.5 mg/dL (8.4-10.2); CARBON DIOXIDE 22 mmol/L (22-29); CHLORIDE 99 mmol/L (98-107); CREATININE, SERUM 0.75 mg/dL (0.72-1.25); EST GLOMERULAR FILTRATION RATE > 60 ML/MIN (60-); GLUCOSE 184 mg/dL (74-118); MAGNESIUM 1.9 MG/DL (1.3-2.1); POTASSIUM 3.5 mmol/L (3.5-5.1); SODIUM 134 mmol/L (136-145)
[2019-03-03] MEDS ORDERED: NORVASC10 MG PO (07:00)
[2019-03-03] MEDS ORDERED: TYLENOL WITH C1 EACH PO (07:00)
[2019-03-03] MEDS: INSULIN REGULAR, HUMAN 100 UNIT/1 ML 3ML VIAL SQ SCH ×3 (08:00→16:25)
[2019-03-03 08:17] VITALS: BP 161/88
[2019-03-03] MEDS: VASCEPA 2 GM PO SCH (09:00)
[2019-03-03] MEDS ORDERED: ONDANSETRON HCL 4 MG ORAL DISINTEGRATING TAB PO PRN (09:00)
[2019-03-03] MEDS ORDERED: AMLODIPINE BESYLATE 10 MG TAB PO SCH (09:00)
[2019-03-03 09:15] VITALS: BP 161/88
[2019-03-03] MEDS: FENOFIBRATE 145 MG TAB PO SCH (09:23)
[2019-03-03] MEDS: METFORMIN HCL 500 MG TAB CR PO SCH ×2 (09:23→16:25)
[2019-03-03] MEDS: FAMOTIDINE 20 MG TAB PO SCH ×2 (09:23→16:24)
[2019-03-03] MEDS: LISINOPRIL 20 MG TAB PO SCH (09:23)
[2019-03-03] MEDS: VANCOMYCIN HCL 1.5 GM in SODIUM CHLORIDE 0.9% 250ML 300 ML IV SCH (10:00)
[2019-03-03] MEDS: CEFEPIME 1GM/NS 0.9% 50 ML 50 ML IV SCH (11:38)
[2019-03-03 12:00] VITALS: BP 161/93
--- NOTE | 2019-03-03 14:33 | NUR ---
HOME HEALTH DISCHARGE NOTE PATIENT ADDRESS WHERE SERVICE WILL BE RECEIVED: [address] [place] [address] PATIENT CONTACT NUMBER: [phone] NAME OF HOME HEALTH COMPANY: [employer] TELEPHONE/FAX NUMBER OF COMPANY: OFF: [phone] / FAX: [phone] ADDRESS OF COMPANY: [facility] [place] [address] [address] SERVICES TO RECEIVE: ALF, IV ANTIBIOTICS X 6WEEKS: VANCOMYCIN 1GM IV EVERY 12 HOURS X 6 WEEKS, CEFEPIME 2GM IV Q 12HRS X 6 WEEKS ANTICIPATED DATE SERVICES WILL BEGIN: 03/04/2019 Please call the company above if you have not received a call to schedule a home visit within 24 hours of discharge. Addendum: 03/03/19 at 1624 by Priscilla Proctor [facility] @ [phone]
--- NOTE | 2019-03-03 16:00 | NUR ---
SPOKE WITH ROSALIO MCQUEEN OK TO DISCHARGE PT HOME
[2019-03-03 16:12] VITALS: BP 141/81
--- NOTE | 2019-03-03 16:30 | NUR ---
PT DISCHARGED HOME ,PICC LINE FLUSHED AND PATENT,PRESCRIPTIONS GIVEN,PARAGON FOR IV ANTIBIOTICS SET UP .PT AMBULATED TO AUTO
--- NOTE | 2019-03-04 04:01 | Discharge Summary ---
ADMISSION DIAGNOSES: Left leg cellulitis with sepsis; failed outpatient treatment; leiomyosarcoma; type 2 diabetes with hyperglycemia, uncontrolled; uncontrolled hypertension; morbid obesity; hyperlipidemia. DISCHARGE DIAGNOSES: Left leg cellulitis with sepsis; failed outpatient treatment; leiomyosarcoma; type 2 diabetes with hyperglycemia, uncontrolled; uncontrolled hypertension; morbid obesity; hyperlipidemia. HISTORY: The patient has a history of high blood pressure, diabetes, leiomyosarcoma, hyperlipidemia, pancreatitis. The patient is being treated at [facility] for the cancer. SURGICAL HISTORY: Skin graft. FAMILY HISTORY: The patient's mother has prediabetes. 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 HOSPITAL COURSE: A 48-year-old male, being treated outpatient for left leg cellulitis. He was discharged on 01/26/2019 with PICC line with treatment with vancomycin for [address] Willoughby was following. The patient has noticed that the leg was worsening despite the antibiotics, so he came to the ER. Once in the ER, cefepime was added per Dr. Willoughby. Chest x-ray was negative. Blood cultures negative. Urine culture negative. After a couple of days of IV antibiotics, the patient's leg is much better. He will be discharged home with 6 weeks antibiotics per ID recommendation. Antibiotics will be vancomycin and cefepime. The patient will follow up with Dr. Willoughby outpatient. He understands discharge instructions and agrees to plan. Vital signs stable and the patient afebrile. Dictated by Doris Quiles NP MD JOHN Corona/MODL /[id number]
== END 2019-03-03 16:30 | disposition home or self-care (01) | DRG 872 ==
LOC: ER 10:21 → ERHOLD 12:12 → ICU 20:12 → MED/SURG3 03-02 08:40
PROVIDERS: ADMIT Internal Medicine; ATTEND Internal Medicine
PROC: 02HV33Z Insertion of Infusion Device into Superior Vena Cava, Percutaneous Approach (ICD-10-PCS; principal; 2019-03-01)
PROC: B548ZZA Ultrasonography of Superior Vena Cava, Guidance (ICD-10-PCS; 2019-03-01)
DX: A41.9 Sepsis, unspecified organism (principal); L03.116 Cellulitis of left lower limb; C49.22 Malignant neoplasm of connective and soft tissue of left lower limb, including hip; Z68.42 Body mass index [BMI] 45.0-49.9, adult; I10 Essential (primary) hypertension; E11.65 Type 2 diabetes mellitus with hyperglycemia; Z88.0 Allergy status to penicillin; E78.5 Hyperlipidemia, unspecified; E66.01 Morbid (severe) obesity due to excess calories; Z79.4 Long term (current) use of insulin
CPT/HCPCS: 36415; 36569; 71045; 71046; 74470; 80048; 80053; 80061; 80202; 81001; 82948; 83036; 83605; 83735; 83880; 84100; 84443; 85025; 87040; 87086; 93005; 99284; J0692; J1650; J1815; J1817; J3370; J3475; J7030; J7050

== ENCOUNTER 2019-03-29 16:08 | Observation (INO) | payer OTHER ==
[~2019-03-29] VITALS: Ht 170.2 cm; Wt 141.6 kg
[~2019-03-29 16:08] MED LIST changes: +NORVASC10 MG PO; +TYLENOL WITH C1 EACH PO
[2019-03-29] MEDS ORDERED: SODIUM CHLORIDE 0.9% 1000ML 1,000 ML IV STA ×2 (17:57)
[2019-03-29] MEDS ORDERED: VANCOMYCIN 1GM/NS 250 ML 250 ML IV ONE (17:57)
[2019-03-29] MEDS ORDERED: DEXTROSE 50% SYRINGE 50 ML IV PRN ×2 (18:00)
[2019-03-29] MEDS ORDERED: MEROPENEM 500MG 500 MG in SODIUM CHLORIDE 0.9% 50ML 50 ML IV SCH (18:00)
[2019-03-29] MEDS ORDERED: MEROPENEM 1GRAM 1 GM in SODIUM CHLORIDE 0.9% 100 ML 100 ML IV ONE (18:00)
[2019-03-29] MEDS ORDERED: ONDANSETRON HCL INJ 2MG/ML 2ML 2 MG/ML VIAL IV PRN (18:00)
[2019-03-29] MEDS ORDERED: MORPHINE SULFATE INJ 4 MG/ML INJ 1ML IV PRN (18:15)
[2019-03-29] MEDS ORDERED: MORPHINE SULFATE 2 MG/ML SYR 1ML IV PRN (18:15)
[2019-03-29] MEDS ORDERED: MEROPENEM 1GM 100 ML IV ONE (18:15)
[2019-03-29 19:31] LABS: BILIRUBIN,URINE NEGATIVE (NEGATIVE); CLARITY,URINE SL CLOUDY (CLEAR); COLOR,URINE YELLOW (YELLOW); KETONES,URINE NEGATIVE (NEGATIVE); LEUKOCYTE ESTERASE ,URINE NEGATIVE (NEGATIVE); NITRITE,URINE NEGATIVE (NEGATIVE); PROTEIN,URINE DIPSTICK TRACE (NEGATIVE)
--- NOTE | 2019-03-29 19:38 | Diagnostic Imaging Report ---
EXAMINATION: CHEST SINGLE (PORTABLE) INDICATION: Cellulitis. Flulike symptoms ^ERMD ORDER ^[id number] ^1855 ^Y COMPARISON: March 01, 2019 FINDINGS: TUBES and LINES: None. LUNGS: Lungs are well inflated. Perihilar peribronchial hazy opacity could be due to bronchitis. There is no evidence of pneumonia or pulmonary edema. PLEURA: No pleural effusion or pneumothorax. HEART AND MEDIASTINUM: The cardiomediastinal silhouette is unremarkable. BONES AND SOFT TISSUES: No acute osseous lesion. Soft tissues are unremarkable. UPPER ABDOMEN: No free air under the diaphragm. IMPRESSION: Perihilar peribronchial hazy opacity could be due to bronchitis Signed by: Dr. Boo Bolden M.D. on 03/29/2019 7:35 PM
[2019-03-29 19:54] LABS: EPITHELIAL CELLS,URINE FEW /LPF; MUCUS,URINE MODERATE (RARE)
[2019-03-29] MEDS ORDERED: INSULIN REGULAR, HUMAN 100 UNIT/1 ML 3ML VIAL SQ SCH (21:00)
--- NOTE | 2019-03-29 22:00 | NUR ---
PATIENT RECIEVED TO FLOOR IN STABLE CONDITION WALKING WITH IV POLE. PATIENT HAS NO COMPLAINTS OF PAIN OR DISCOMFORT AT THIS TIME, EDUCATED PATIENT ON IV THERAPY AND MEDICATIONS. PATIENT RESTING COMFORTABLY IN BED AT THIS TIME. PROVIDED PATIENT WITH SANDWICH AND SNACK PER REQUEST, WILL CONTINUE TO MONITOR.
[2019-03-29 22:23] LABS: BASOPHILS % 0.5 % (0.0-1.0); EOSINOPHILS # (AUTO) 0.2 (0.0-0.4); EOSINOPHILS % 5.3 % (0.0-6.0); HEMATOCRIT 44.1 % (38.2-49.6); HEMOGLOBIN 15.6 g/dL (14.0-18.0); LYMPHOCYTES # (AUTO) 2.4 (1.0-3.2); LYMPHOCYTES % 56.7 % (18.0-39.1); MEAN CORPUSCULAR HEMOGLOBIN 28.8 pg (28-32); MEAN CORPUSCULAR HGB CONC 35.4 g/dL (31-35); MEAN CORPUSCULAR VOLUME 81.5 fL (81-99); MONOCYTES # (AUTO) 0.4 (0.2-0.8); MONOCYTES % 8.9 % (4.4-11.3); NEUTROPHILS # (AUTO) 1.2 (2.1-6.9); NEUTROPHILS % 28.1 % (38.7-80.0); PLATELET COUNT 214 x10e3/uL (140-360); RED BLOOD COUNT 5.41 x10e6/uL (4.3-5.7); RED CELL DISTRIBUTION WIDTH 13.9 % (11.7-14.4)
[2019-03-29 22:27] LABS: INR 1.02; PROTHROMBIN TIME 13.9 seconds (11.9-14.5)
[2019-03-29 22:28] LABS: PARTIAL THROMBOPLASTIN TIME 27.4 seconds (23.8-35.5)
[2019-03-29 22:35] LABS: ALANINE AMINOTRANSFERASE 82 IU/L (0-55); ALBUMIN 3.9 g/dL (3.5-5.0); ALBUMIN/GLOBULIN RATIO 0.9 (0.8-2.0); ALKALINE PHOSPHATASE 85 IU/L (40-150); ANION GAP 17.1 mmol/L (8-16); BLOOD UREA NITROGEN 24 mg/dL (7-26); BUN/CREATININE RATIO 25 (6-25); CARBON DIOXIDE 24 mmol/L (22-29); CHLORIDE 100 mmol/L (98-107); CREATINE KINASE 303 IU/L (30-200); CREATININE, SERUM 0.95 mg/dL (0.72-1.25); EST GLOMERULAR FILTRATION RATE > 60 ML/MIN (60-); GLUCOSE 134 mg/dL (74-118); MAGNESIUM 2.2 MG/DL (1.3-2.1); POTASSIUM 4.1 mmol/L (3.5-5.1); SODIUM 137 mmol/L (136-145)
[2019-03-29] MEDS: INSULIN REGULAR, HUMAN 100 UNIT/1 ML 3ML VIAL SQ SCH (22:57)
[2019-03-29 23:29] VITALS: BP 123/57
[2019-03-29 23:37] VITALS: BP 123/57
[2019-03-29 23:41] VITALS: BP 123/57
[2019-03-29] MEDS: VANCOMYCIN 1GM/NS 250 ML 250 ML IV SCH (23:43)
[2019-03-29] MEDS: SODIUM CHLORIDE 0.9% 1000ML 1,000 ML IV SCH (23:43)
[2019-03-29] MEDS: MEROPENEM 500MG/ NS 50ML BAG IV SCH (23:43)
[2019-03-30] VITALS (8 sets, daily range): BP systolic 130–147; BP diastolic 68–93
[2019-03-30 05:20] LABS: BASOPHILS % 0.8 % (0.0-1.0); EOSINOPHILS # (AUTO) 0.5 (0.0-0.4); EOSINOPHILS % 9.2 % (0.0-6.0); HEMATOCRIT 39.1 % (38.2-49.6); HEMOGLOBIN 13.5 g/dL (14.0-18.0); LYMPHOCYTES # (AUTO) 3.3 (1.0-3.2); LYMPHOCYTES % 64.8 % (18.0-39.1); MEAN CORPUSCULAR HEMOGLOBIN 28.4 pg (28-32); MEAN CORPUSCULAR HGB CONC 34.5 g/dL (31-35); MEAN CORPUSCULAR VOLUME 82.3 fL (81-99); MONOCYTES # (AUTO) 0.5 (0.2-0.8); NEUTROPHILS # (AUTO) 0.8 (2.1-6.9); PLATELET COUNT 190 x10e3/uL (140-360); RED BLOOD COUNT 4.75 x10e6/uL (4.3-5.7); RED CELL DISTRIBUTION WIDTH 13.7 % (11.7-14.4)
[2019-03-30] MEDS: VANCOMYCIN 1GM/NS 250 ML 250 ML IV SCH (05:25)
[2019-03-30 05:30] LABS: ALANINE AMINOTRANSFERASE 67 IU/L (0-55); ALBUMIN 3.2 g/dL (3.5-5.0); ALKALINE PHOSPHATASE 72 IU/L (40-150); ANION GAP 12.4 mmol/L (8-16); BLOOD UREA NITROGEN 19 mg/dL (7-26); BUN/CREATININE RATIO 22 (6-25); CARBON DIOXIDE 26 mmol/L (22-29); CHLORIDE 102 mmol/L (98-107); CREATININE, SERUM 0.87 mg/dL (0.72-1.25); EST GLOMERULAR FILTRATION RATE > 60 ML/MIN (60-); GLUCOSE 180 mg/dL (74-118); MAGNESIUM 1.9 MG/DL (1.3-2.1); PHOSPHORUS 3.3 MG/DL (2.3-4.7); POTASSIUM 4.4 mmol/L (3.5-5.1); SODIUM 136 mmol/L (136-145)
[2019-03-30] MEDS: INSULIN REGULAR, HUMAN 100 UNIT/1 ML 3ML VIAL SQ SCH ×2 (07:55→11:54)
[2019-03-30] MEDS: SODIUM CHLORIDE 0.9% 1000ML 1,000 ML IV SCH (08:33)
[2019-03-30] MEDS: MEROPENEM 500MG/ NS 50ML BAG IV SCH ×4 (08:33→23:52)
[2019-03-30] MEDS: LOSARTAN POTASSIUM 100 MG TAB PO SCH (12:27)
--- NOTE | 2019-03-30 13:01 | Diagnostic Imaging Report ---
EXAMINATION: CHEST SINGLE (PORTABLE) INDICATION: Fever COMPARISON: None FINDINGS: TUBES and LINES: None. LUNGS: The lung volumes are normal. No focal consolidation or pulmonary edema. PLEURA: No pleural effusion or pneumothorax. HEART AND MEDIASTINUM: The cardiomediastinal silhouette is normal in size and contour. BONES AND SOFT TISSUES: No acute fracture or dislocation. UPPER ABDOMEN: No free air under the diaphragm. IMPRESSION: No focal pneumonia or pulmonary edema. Signed by: Janine Herbert MD on 03/30/2019 12:57 PM
[2019-03-30] MEDS: INSULIN LISPRO 100 UNIT/1 ML 3ML VIAL SQ SCH ×2 (17:12→21:01)
[2019-03-30] MEDS: METFORMIN HCL 500 MG TAB CR PO SCH (17:12)
[2019-03-30 20:21] LABS: EOSINOPHILS % (MANUAL) 11 % (0-7); LYMPHOCYTES % (MANUAL) 59 % (19-48); MONOCYTES % (MANUAL) 13 % (3.4-9.0); NEUTROPHILS % (MANUAL) 17 % (40-74); PLATELET ESTIMATE ADEQUATE; PLATELET MORPHOLOGY COMMENT NORMAL; RBC MORPHOLOGY COMMENT NORMAL
--- NOTE | 2019-03-30 20:42 | History and Physical ---
REASON FOR CONSULTATION: Fever. HISTORY OF PRESENT ILLNESS: This patient who is well known to me, very pleasant gentleman, who has history of melanoma affecting his left foot, underwent surgery, resection with flap. He keeps getting recurrent infection of his leg and we treated him with 2 weeks of IV antibiotic a few months ago, but after one week of antibiotic came back with infection, he was started on IV vancomycin. The idea was to put him on IV vancomycin, then give him oral doxycycline. The patient was admitted here, he called me a couple of days ago complaining of fever and chills and not feeling well. I was concerned that he had line infection versus other, so I told him to come to the hospital where he was admitted. Blood cultures obtained. He is currently lying in bed comfortably. He is telling me he is feeling better. He was just having fever, chills, body aches all over as if he was having the flu, but right now, he is doing good. REVIEW OF SYSTEMS: HEENT: Negative. PULMONARY: Negative. CARDIAC: Negative. : Negative. All other systems are within normal limits. LABORATORY DATA: White count 5.1, hemoglobin of 13, hematocrit of 39. His sodium 136, potassium 4.4, creatinine 0.87. His liver enzyme slightly elevated. AST 70, ALT 82. His cultures still pending. PHYSICAL EXAMINATION: GENERAL: He is currently alert, oriented, does not seem to be in acute distress. VITAL SIGNS: Stable. There is no fever since admission. When he first came, it was 100. HEENT: Normocephalic, not icteric. NECK: Supple. CHEST: Clear bilaterally. HEART: S1, S2. No S3, S4, or murmur. ABDOMEN: Soft. Bowel sound present. EXTREMITIES: No edema. SKIN: No rash. IMPRESSION: 1. Fever on admission. Concerned about line infection. PICC line removed. We started the patient on vancomycin and meropenem. Await blood cultures. 2. Obesity. 3. Diabetes mellitus, continue treatment. 4. Hypertension, continue treatment. 5. History of melanoma followed by MD Sr, seem to be stable. 6. Recurrent cellulitis of the leg. He had three in the last year. He has been on several antibiotics. He may need to be on suppressive antibiotic after that. All long-term antibiotics to be determined. Discussed with the patient. We will follow with you. MD ANAHY Burks /[id number]
[2019-03-31 05:25] LABS: BASOPHILS % 0.4 % (0.0-1.0); EOSINOPHILS # (AUTO) 1.1 (0.0-0.4); EOSINOPHILS % 13.9 % (0.0-6.0); HEMATOCRIT 43.1 % (38.2-49.6); HEMOGLOBIN 14.6 g/dL (14.0-18.0); LYMPHOCYTES # (AUTO) 3.9 (1.0-3.2); LYMPHOCYTES % 50.7 % (18.0-39.1); MEAN CORPUSCULAR HEMOGLOBIN 28.2 pg (28-32); MEAN CORPUSCULAR HGB CONC 33.9 g/dL (31-35); MEAN CORPUSCULAR VOLUME 83.4 fL (81-99); MONOCYTES # (AUTO) 0.8 (0.2-0.8); NEUTROPHILS # (AUTO) 1.9 (2.1-6.9); NEUTROPHILS % 24.7 % (38.7-80.0); PLATELET COUNT 238 x10e3/uL (140-360); RED BLOOD COUNT 5.17 x10e6/uL (4.3-5.7); RED CELL DISTRIBUTION WIDTH 13.8 % (11.7-14.4)
[2019-03-31 05:47] LABS: ANION GAP 14.5 mmol/L (8-16); BLOOD UREA NITROGEN 22 mg/dL (7-26); BUN/CREATININE RATIO 26 (6-25); CALCIUM 9.7 mg/dL (8.4-10.2); CARBON DIOXIDE 27 mmol/L (22-29); CHLORIDE 100 mmol/L (98-107); CREATINE KINASE 180 IU/L (30-200); CREATININE, SERUM 0.84 mg/dL (0.72-1.25); EST GLOMERULAR FILTRATION RATE > 60 ML/MIN (60-); GLUCOSE 240 mg/dL (74-118); POTASSIUM 4.5 mmol/L (3.5-5.1); SODIUM 137 mmol/L (136-145)
[2019-03-31] MEDS: MEROPENEM 500MG/ NS 50ML BAG IV SCH ×2 (06:04→11:52)
--- NOTE | 2019-03-31 07:00 | NUR ---
Pt received resting in bed. Alert and oriented x4 with saline lock patent in right AC. Oriented to staff and surroundings. Encouraged to press call ham if help needed. Call ham within reach. Will monitor
[2019-03-31 07:01] LABS: BAND NEUTROPHILS % (MANUAL) 1 %; EOSINOPHILS % (MANUAL) 17 % (0-7); LYMPHOCYTES % (MANUAL) 54 % (19-48); MONOCYTES % (MANUAL) 4 % (3.4-9.0); NEUTROPHILS % (MANUAL) 24 % (40-74)
[2019-03-31 07:06] LABS: PLATELET ESTIMATE ADEQUATE; RBC MORPHOLOGY COMMENT NORMAL
[2019-03-31 07:07] LABS: PLATELET MORPHOLOGY COMMENT FEW LARGE
[2019-03-31 07:20] VITALS: BP 135/77
[2019-03-31] MEDS ORDERED: LISINOPRIL PO SCH (09:00)
[2019-03-31] MEDS ORDERED: AMLODIPINE BESYLATE 10 MG TAB PO SCH (09:00)
[2019-03-31] MEDS ORDERED: Fenofibrate 160 MG TABLET PO SCH (09:00)
[2019-03-31] MEDS: METFORMIN HCL 500 MG TAB CR PO SCH (09:21)
[2019-03-31] MEDS: INSULIN LISPRO 100 UNIT/1 ML 3ML VIAL SQ SCH ×2 (09:21→11:53)
[2019-03-31 09:22] VITALS: BP 135/77
[2019-03-31] MEDS: LOSARTAN POTASSIUM 100 MG TAB PO SCH (09:22)
--- NOTE | 2019-03-31 09:22 | NUR ---
All meds given as ordered. Call ham within reach. Will monitor
[2019-03-31 11:20] VITALS: BP 131/62
[2019-03-31] MEDS ORDERED: DOXYCYCLINE HY100 MG PO (15:37)
[2019-03-31] MEDS ORDERED: COZAAR25 MG PO (15:38)
--- NOTE | 2019-03-31 15:47 | NUR ---
Pt given discharge instructions regarding meds, diet, activities, s/s to report and follow up appointment. Pt verbalized understanding of teaching. Refused wheelchair. Will escort pt to private car
--- NOTE | 2019-03-31 15:52 | NUR ---
Pt left unit with all belongings
--- NOTE | 2019-03-31 16:32 | Discharge Summary ---
PRIMARY CARE DOCTOR: Dr. Flavio Cardoza. FINAL DIAGNOSES: 1. Sepsis, present on admission, likely due to viral syndrome. 2. Chronic dry cough. 3. Diabetes. 4. Hypertension. 5. Left leg leiomyosarcoma, status post resection since with recurrent cellulitis. CONSULTANTS: Dr. Willoughby, Infectious Disease. PROCEDURES/STUDIES PERFORMED: None. HISTORY: Per H and P. HOSPITAL COURSE: The patient was admitted. His PICC line was removed. The patient have one low-grade fever of 100.0, since then he has been afebrile. His myalgia is better, potentially this may be due to a viral syndrome given his lymphocytes are elevated. However, potentially this could be drug induced given eosinophilia. At this time, per ID's recommendation, the patient will go home on 30 days of doxycycline. He will not continue his home IV antibiotics. The patient will follow up with Dr. Willoughby as far as his dry cough for the last 2 months. I stopped the lisinopril and started losartan, a prescription was given to him for losartan. The patient will follow up with his primary care doctor in a couple of weeks to see if his dry cough continues to get better. The patient was seen and examined today, it took 32 minutes total to discharge this patient. CONDITION ON DISCHARGE: Improved. DISCHARGE MEDICATIONS: Please see medication reconciliation form. Of note, his blood cultures are negative. MD ROBERT Ca/JUANITO /[id number] cc: Flavio Cardoza
[2019-03-31] MEDS ORDERED: SIMVASTATIN 40 MG TAB PO SCH (21:00)
== END 2019-03-31 15:50 | disposition home or self-care (01) ==
LOC: ER 16:08 → INTOOBSV 18:00 → ERHOLD 18:00 → IMCU 23:10
PROVIDERS: ADMIT Internal Medicine; ATTEND Internal Medicine
DX: A41.9 Sepsis, unspecified organism (principal); B34.9 Viral infection, unspecified; L03.116 Cellulitis of left lower limb; C44.729 Squamous cell carcinoma of skin of left lower limb, including hip; I10 Essential (primary) hypertension; E11.9 Type 2 diabetes mellitus without complications; Z83.3 Family history of diabetes mellitus; Z82.49 Family history of ischemic heart disease and other diseases of the circulatory system; Z88.0 Allergy status to penicillin; R05 Cough; E66.9 Obesity, unspecified; Z68.42 Body mass index [BMI] 45.0-49.9, adult
CPT/HCPCS: 36415 ×3; 71045 ×2; 80048; 80053 ×2; 81001; 82550 ×2; 82553; 82948 ×2; 83735 ×2; 83880; 84100; 84484; 85025 ×3; 85610; 85730; 87040; 93005; 96360 ×2; 96372; 99284; G0378 ×3; J3370; J7030 ×2